=== PATIENT | female | born 1940 | race Hispanic/Latino ===

== ENCOUNTER 2019-11-06 12:00 | Emergency (ER) | payer OTHER ==
--- OUTSIDE RECORDS SUMMARY | 2019-11-06 12:02 | XMS REPORT ---
:1940 Author Organization eClinicalWorks Care Team Providers Name Role Phone Alvarado, Na Provider Role Unavailable Allergies, Adverse Reactions, Alerts Substance Reaction Event Type tramadol Info Not Available Drug Allergy penicillin Info Not Available Drug Allergy Problems Problem Type Condition Code Onset Dates Condition Status Problem Anemia in chronic illness D63.8 Active Problem Cataract H26.9 Active Problem DJD (degenerative joint disease) M19.90 Active Problem Muscle strain of upper back S29.012A Active Problem GERD without esophagitis K21.9 Active Problem Varicose veins of bilateral lower I83.813 Active extremities with pain Problem Rheumatoid arthritis M06.9 Active Problem Screening for osteoporosis Z13.820 Active Problem Osteoarthritis, multiple sites M15.9 Active Problem Degeneration, intervertebral disc, M51.37 Active lumbosacral Assessment Needs flu shot Z23 Active Assessment Varicose veins of bilateral lower I83.813 Active extremities with pain Assessment Anemia in chronic illness D63.8 Active Assessment Rheumatoid arthritis M06.9 Active Assessment Osteoarthritis, multiple sites M15.9 Active Assessment DJD (degenerative joint disease) M19.90 Active Problem Allergic rhinitis, seasonal J30.2 Active Medications Medication Code Code Instructions Start End Status Dosage System Date Date Omeprazole [facility] 70701318949 20 MG Orally Active 1 capsule Once a day Caltrate 600+D [facility] 80355002443 600-800 MG-UNIT Active 1 tablet Orally Once a with a day meal PredniSONE ND 16907856339 20 MG Active TAKE ONE TABLET BY MOUTH ONCE DAILY Methotrexate [facility] 74468083862 2.5 MG Orally Active 6 tabs Sodium once a week Nasacort Allergy [facility] 71756085439 55 MCG/ACT Active 1 puff in 24HR Nasally Once a each day nostril Refresh Dry Eye ND 0 Active not Therapy defined Celebrex [facility] 83563828788 200 MG Orally Active 1 capsule Once a day with food Ferrous Sulfate ND 23821687801 325 (65 Fe) MG Active 1 tablet Orally Once a day Tizanidine HCl ND 12686548701 2 MG Orally at January Active 1 capsule bedtime 2018 as needed Folic Acid [facility] 33622452688 1 MG Orally Active 1 tablet Once a day Results No Known Results Immunizations Vaccine Administration Date FluAD Jul 25, 2019 Summary Purpose eClinicalWorks Submission
--- OUTSIDE RECORDS SUMMARY | 2019-11-06 12:02 | XMS REPORT ---
:1940 Author Organization eClinicalWorks Care Team Providers Name Role Phone Alvarado, Na Provider Role Unavailable Allergies, Adverse Reactions, Alerts Substance Reaction Event Type tramadol Info Not Available Drug Allergy penicillin Info Not Available Drug Allergy Problems Problem Type Condition Code Onset Dates Condition Status Problem DJD (degenerative joint disease) M19.90 Active Problem Screening for osteoporosis Z13.820 Active Problem Cataract H26.9 Active Problem Varicose veins of bilateral lower I83.813 Active extremities with pain Problem Muscle strain of upper back S29.012A Active Problem Vitamin D deficiency E55.9 Active Problem Osteoarthritis, multiple sites M15.9 Active Problem Degeneration, intervertebral disc, M51.37 Active lumbosacral Problem Rheumatoid arthritis M06.9 Active Problem GERD without esophagitis K21.9 Active Assessment Exposure to the flu Z20.828 Active Assessment Viral upper respiratory illness J06.9 Active Assessment Flu-like symptoms R68.89 Active Problem Allergic rhinitis, seasonal J30.2 Active Assessment Fever, unspecified fever cause R50.9 Active Problem Anemia in chronic illness D63.8 Active Medications Medication Code Code Instructions Start End Status Dosage System Date Date Tamiflu [facility] 32520262862 75 MG Orally Active 1 capsule Twice a day Caltrate 600+D [facility] 79252728950 600-800 MG-UNIT Active 1 tablet Orally Once a with a day meal PredniSONE ND 36409663825 20 MG Active TAKE ONE TABLET BY MOUTH ONCE DAILY Tizanidine HCl ND 29132846454 2 MG Orally at January Active 1 capsule bedtime 2018 as needed Ferrous Sulfate ND 95608221004 325 (65 Fe) MG Active 1 tablet Orally Once a day Methotrexate [facility] 26539508382 2.5 MG Orally Active 6 tabs Sodium once a week Nasacort Allergy [facility] 48445565295 55 MCG/ACT Active 1 puff in 24HR Nasally Once a each day nostril Omeprazole ND 65323113927 20 MG Orally Active 1 capsule Once a day Refresh Dry Eye NDC 0 Active not Therapy defined Folic Acid [facility] 26682665416 1 MG Orally Active 1 tablet Once a day Celebrex [facility] 06017893445 200 MG Orally Active 1 capsule Once a day with food Results Name Result Date Reference Range Unit Abnormality Flag FLU TEST A/B ----A neg [id number] ----B neg [id number] Summary Purpose eClinicalWorks Submission
--- OUTSIDE RECORDS SUMMARY | 2019-11-06 12:02 | XMS REPORT ---
:1940 Author Organization eClinicalWorks Care Team Providers Name Role Phone Alvarado, Na Provider Role Unavailable Allergies No Known Allergies Problems Problem Type Condition Code Onset Dates [...] Degeneration, intervertebral disc, M51.37 Active lumbosacral Assessment Rheumatoid arthritis M06.9 Active Assessment Osteoarthritis, multiple sites M15.9 Active Assessment Anemia in chronic illness D63.8 Active Problem Allergic rhinitis, seasonal J30.2 Active Medications No Known Medications Results No Known Results Summary Purpose eClinicalEvodental Submission
[2019-11-06] MEDS ORDERED: FENTANYL CITR 100 MCG/2 ML ONE (13:41)
--- NOTE | 2019-11-06 14:07 | RAD REPORT ---
EXAM DESCRIPTION: CT - Thorax Wo Con - 11/06/2019 1:52 pm CLINICAL HISTORY: Chest pain status fall COMPARISON: 2011 TECHNIQUE: Computed axial tomography of the chest was obtained. Contrast was not requested. All CT scans are performed using dose optimization technique as appropriate and may include automated exposure control or mA/KV adjustment according to patient size. FINDINGS: The evaluation of mediastinum, dean and vessels is limited secondary to lack of IV contras t administration. A mediastinal hematoma is not seen. A pulmonary contusion is not noted A pleural effusion is not present. A pericardial effusion is not seen IMPRESSION: No acute traumatic injury involving the chest seen
--- NOTE | 2019-11-06 14:47 | RAD REPORT ---
EXAM DESCRIPTION: RAD -Hand Left 3 View - 11/06/2019 2:01 pm CLINICAL HISTORY: Left hand pain status post injury FINDINGS: No acute fracture or dislocation is seen. Subluxations involve several proximal phalanges. Bones are osteoporotic. Flexion deformity involves t he fourth PIP joint. Narrowing involves the carpal joints. These findings likely related to rheumatoid arthritis
--- NOTE | 2019-11-06 14:48 | ER ---
Nurse's Notes [facility] Name: Maya Burrell Age: 79 yrs Sex: Female : 1940 Arrival Date: 11/06/2019 Time: 12:03 Bed 23 Private MD: Taisha Alvarado Diagnosis: Contusion of left hand;Contusion of right lower leg;Other chest pain Presentation: 11/06 12:36 Presenting complaint: Patient states: fell on Monday, pain to left hand, right knee, iw and chest, fell forward onto ground, ia having a hard time breathing. Care prior to arrival: None. 12:36 Acuity: JERRY 3 iw 12:36 Method Of Arrival: Ambulatory iw 12:38 Transition of care: patient was not received from another setting of care. Onset of iw symptoms was November 03, 2019. Risk Assessment: Do you want to hurt yourself or someone else? Patient reports no desire to harm self or others. Initial Sepsis Screen: Does the patient meet any 2 criteria? No. Patient's initial sepsis screen is negative. Does the patient have a suspected source of infection? No. Patient's initial sepsis screen is negative. 13:20 Mechanism of Injury: Fall from standing position. Trauma event details: Injury occurred ca1 in the [facility], Injury occurred: at home. Injury occurred: November 03, 2019. Trauma Activation: Not Applicable Physician: ED Physician; Name: ; Notified At: ; Arrived At: Physician: General Surgeon; Name: ; Notified At: ; Arrived At: Physician: Radiology; Name: ; Notified At: ; Arrived At: Physician: Respiratory; Name: ; Notified At: ; Arrived At: Physician: Lab; Name: ; Notified At: ; Arrived At: Historical: - Allergies: 12:38 PENICILLINS; iw - PMHx: 12:38 Arthritis; iw - PSHx: 12:38 Eye surgery; iw - Immunization history: Last tetanus immunization:. - Social history:: Smoking status: Patient denies any tobacco usage or history of. - Ebola Screening: : Patient negative for fever greater than or equal to 101.5 degrees Fahrenheit, and additional compatible Ebola Virus Disease symptoms Patient denies exposure to infectious person Patient denies travel to an Ebola-affected area in the 21 days before illness onset No symptoms or risks identified at this time. Screenin:15 Abuse screen: Denies threats or abuse. Denies injuries from another. Nutritional ca1 screening: No deficits noted. Tuberculosis screening: No symptoms or risk factors identified. Fall Risk Fall in past 12 months (25 points). Primary Survey: 13:18 NO uncontrolled hemorrhage observed. A: A: The patient is alert. Breathing/Chest: ca1 Respiratory pattern: regular, Respiratory effort: spontaneous, unlabored, Breath sounds: clear, Chest inspection: symmetrical rise and fall of the chest. Circulation: Skin color: pink, Skin temperature: warm, dry. Disability Alert. Exposure/Environment: All clothing and personal items were removed. Forensic evidence collection is not deemed to be indicated at this time. Items placed in patient belonging bag. There is no evidence of uncontrolled external bleeding. No obvious injuries are noted at this time. A warming method has been applied: A warm blanket has been provided to the patient. 14:27 Reassessment Airway Airway Patent Breathing/Chest Respiratory pattern Regular ca1 Respiratory effort Spontaneous Unlabored Breath sounds Clear Chest inspection Symmetrical Circulation Heart rhythm Sinus salomón Heart tones Present Pulses Palpable Color Bel[place] Temperature Warm Dry Disability Alert. Assessment: 13:15 General: Appears in no apparent distress. uncomfortable, Behavior is calm, cooperative, ca1 appropriate for age. Pain: Complains of pain in L wrist, R knee, R chest Pain currently is 8 out of 10 on a pain scale. Pain began 2-3 days ago. Aggravated by repositioning. Neuro: Level of Consciousness is awake, alert, obeys commands, Oriented to person, place, time, situation, Appropriate for age. Cardiovascular: Heart tones S1 S2 present Capillary refill < 3 seconds Patient's skin is warm and dry. Rhythm is. Respiratory: Reports shortness of breath on exertion Airway is patent Respiratory effort is even, unlabored, Respiratory pattern is regular, symmetrical, Breath sounds are clear bilaterally. GI: Abdomen is round non-distended, Bowel sounds present X 4 quads. Abd is soft and non tender X 4 quads. : No deficits noted. No signs and/or symptoms were reported regarding the genitourinary system. EENT: No signs and/or symptoms were reported regarding the EENT system. Derm: Skin is intact, is healthy with good turgor, Skin is pink, warm \T\ dry. Musculoskeletal: Circulation, motion, and sensation intact. Capillary refill < 3 seconds. 13:42 Reassessment: Pt to CT. ca1 14:26 Reassessment: Patient appears in no apparent distress at this time. Patient and/or ca1 family updated on plan of care and expected duration. Pain level reassessed. Patient is alert, oriented x 3, equal unlabored respirations, skin warm/dry/pink. 15:02 Reassessment: Patient appears in no apparent distress at this time. Patient is alert, ca1 oriented x 3, equal unlabored respirations, skin warm/dry/pink. Vital Signs: 12:38 BP 138 / 83; Pulse 62; Resp 16; Temp 97.5; Pulse Ox 100% on R/A; Weight 56.7 kg; iw 14:26 BP 141 / 53; Pulse 59; Resp 17 S; Pulse Ox 100% on R/A; ca1 Krys Coma Score: 13:18 Eye Response: spontaneous(4). Verbal Response: oriented(5). Motor Response: obeys ca1 commands(6). Total: 15. Trauma Score (Adult): 13:18 Eye Response: spontaneous(1); Verbal Response: oriented(1); Motor Response: obeys ca1 commands(2); Systolic BP: > 89 mm Hg(4); Respiratory Rate: 10 to 29 per min(4); Krys Score: 15; Trauma Score: 12 ED Course: 12:03 Patient arrived in ED. mr 12:04 Taisha Alvarado MD is Private Physician. mr 12:37 Triage completed. iw 13:07 Maya Solis, RN is Primary Nurse. ca1 13:08 [facility] Bass [facility]. jr8 13:08 West Child MD is Attending Physician. jr8 13:15 Patient has correct armband on for positive identification. Placed in gown. Bed in low ca1 position. Call light in reach. Side rails up X 1. school bus monitor on. Pulse ox on. NIBP on. Warm blanket given. 13:15 No provider procedures requiring assistance completed. ca1 13:18 Patient maintains SpO2 saturation greater than 95% on room air. ca1 13:20 Thermoregulation: warm blanket given to patient. ca1 13:21 Arm band placed on. ca1 13:35 Inserted saline lock: 22 gauge in right antecubital area, using aseptic technique. ca1 13:52 CT Chest Wo Con In Process Unspecified. EDMS 14:04 XRAY Hand LEFT 3 View In Process Unspecified. EDMS 14:27 EKG done, by ED staff, reviewed by Davey CAVANAUGH. ca1 14:44 Taisha Alvarado MD is Referral Physician. jr8 15:02 IV discontinued, intact, bleeding controlled, No redness/swelling at site. Pressure ca1 dressing applied. Administered Medications: 13:40 Drug: fentaNYL (PF) 25 mcg {Note: RASS - 0.} Route: IVP; Site: right antecubital; ca1 Output: 15:02 Urine: 0ml; Total: 0ml. ca1 Outcome: 14:48 Discharge ordered by . jr8 15:02 Discharged to home ambulatory, with family. ca1 15:02 Condition: stable 15:02 Discharge instructions given to patient, Instructed on discharge instructions, follow up and referral plans. medication usage, Demonstrated understanding of instructions, follow-up care, medications, Prescriptions given X 1. 15:06 Patient's length of stay was not longer than 2 hours. ca1 15:06 Patient left the ED. ca1 Signatures: Dispatcher [employer] EDMD Gus Mago Mesha Washington, RN Davey Vázquez PA PA jr8 Maya Solis RN RN ca1
--- NOTE | 2019-11-06 14:49 | EDPHYS ---
Physician Documentation [facility] Name: Maya Burrell Age: 79 yrs Sex: Female : 1940 Arrival Date: 11/06/2019 Time: 12:03 Bed 23 Private MD: Taisha Alvarado ED Physician West Child HPI: 11/06 14:27 This 79 yrs old Female presents to ER via Ambulatory with complaints of Fall jr8 Injury, Breathing Difficulty. 14:27 Details of fall: The patient fell from an upright position, while standing. jr8 14:27 Onset: The symptoms/episode began/occurred acutely, 3 day(s) ago. Associated injuries: jr8 The patient sustained injury to the chest, left hand, right leg. Severity of symptoms: At their worst the symptoms were moderate, in the emergency department the symptoms are unchanged. The patient has not experienced similar symptoms in the past. The patient has not recently seen a physician. Accidental fall on Monday causing her to injure left hand, right leg, and chest. Denies hitting head or neck. No LOC at that time. Stated that the pain is persistent and not going away. Causing her to be short of breath . Historical: - Allergies: 12:38 PENICILLINS; iw - PMHx: 12:38 Arthritis; iw - PSHx: 12:38 Eye surgery; iw - Immunization history: Last tetanus immunization:. - Social history:: Smoking status: Patient denies any tobacco usage or history of. - Ebola Screening: : Patient negative for fever greater than or equal to 101.5 degrees Fahrenheit, and additional compatible Ebola Virus Disease symptoms Patient denies exposure to infectious person Patient denies travel to an Ebola-affected area in the 21 days before illness onset No symptoms or risks identified at this time. ROS: 14:27 Eyes: Negative for injury, pain, redness, and discharge, ENT: Negative for injury, jr8 pain, and discharge, Neck: Negative for injury, pain, and swelling, Abdomen/GI: Negative for abdominal pain, nausea, vomiting, diarrhea, and constipation, Back: Negative for injury and pain, Skin: Negative for injury, rash, and discoloration, Neuro: Negative for headache, weakness, numbness, tingling, and seizure. 14:27 Cardiovascular: Positive for chest pain, Negative for orthopnea, palpitations, paroxysmal nocturnal dyspnea. 14:27 Respiratory: Positive for shortness of breath. 14:27 MS/extremity: Positive for ecchymosis, pain, of the left hand and right leg. Exam: 14:42 Head/Face: Normocephalic, atraumatic. Eyes: Pupils equal round and reactive to light, jr8 extra-ocular motions intact. Lids and lashes normal. Conjunctiva and sclera are non-icteric and not injected. Cornea within normal limits. Periorbital areas with no swelling, redness, or edema. ENT: Nares patent. No nasal discharge, no septal abnormalities noted. Tympanic membranes are normal and external auditory canals are clear. Oropharynx with no redness, swelling, or masses, exudates, or evidence of obstruction, uvula midline. Mucous membranes moist. Neck: Trachea midline, no thyromegaly or masses palpated, and no cervical lymphadenopathy. Supple, full range of motion without nuchal rigidity, or vertebral point tenderness. No Meningismus. Cardiovascular: Regular rate and rhythm with a normal S1 and S2. No gallops, murmurs, or rubs. Normal PMI, no JVD. No pulse deficits. Respiratory: Lungs have equal breath sounds bilaterally, clear to auscultation and percussion. No rales, rhonchi or wheezes noted. No increased work of breathing, no retractions or nasal flaring. Abdomen/GI: Soft, non-tender, with normal bowel sounds. No distension or tympany. No guarding or rebound. No evidence of tenderness throughout. Back: No spinal tenderness. No costovertebral tenderness. Full range of motion. Skin: Warm, dry with normal turgor. Normal color with no rashes, no lesions, and no evidence of cellulitis. Neuro: Awake and alert, GCS 15, oriented to person, place, time, and situation. Cranial nerves II-XII grossly intact. Motor strength 5/5 in all extremities. Sensory grossly intact. Cerebellar exam normal. Normal gait. 14:42 Chest/axilla: Inspection: normal, Palpation: tenderness, that is moderate, of the anterior aspect of left upper chest, that totally reproduces the patient's complaints. 14:42 Musculoskeletal/extremity: Extremities: grossly normal except: noted in the left hand: ecchymosis, pain, swelling, tenderness, dorsum of hand, noted in the right leg: abrasion, ecchymosis, right knee and proximal anterior tibia, ROM: intact in all extremities, full active range of motion, full passive range of motion, Circulation is intact in all extremities. Sensation intact. Weight bearing: able to fully bear weight, without difficulty. Vital Signs: 12:38 BP 138 / 83; Pulse 62; Resp 16; Temp 97.5; Pulse Ox 100% on R/A; Weight 56.7 kg; iw 14:26 BP 141 / 53; Pulse 59; Resp 17 S; Pulse Ox 100% on R/A; ca1 Krys Coma Score: 13:18 Eye Response: spontaneous(4). Verbal Response: oriented(5). Motor Response: obeys ca1 commands(6). Total: 15. Trauma Score (Adult): 13:18 Eye Response: spontaneous(1); Verbal Response: oriented(1); Motor Response: obeys ca1 commands(2); Systolic BP: > 89 mm Hg(4); Respiratory Rate: 10 to 29 per min(4); Enfield Score: 15; Trauma Score: 12 MDM: 13:19 Patient medically screened. jr8 14:42 Data reviewed: vital signs, nurses notes, radiologic studies, plain films. Data jr8 interpreted: Pulse oximetry: on room air is 100 %. Interpretation: normal. Counseling: I had a detailed discussion with the patient and/or guardian regarding: the historical points, exam findings, and any diagnostic results supporting the discharge/admit diagnosis, radiology results, the need for outpatient follow up, a family practitioner, to return to the emergency department if symptoms worsen or persist or if there are any questions or concerns that arise at home. ED course: No acute osseous findings on imaging. Will have patient follow up with PCP . 11/06 13:24 Order name: CT Chest Wo Con; Complete Time: 14:14 8 11/06 13:25 Order name: XRAY Hand LEFT 3 View; Complete Time: 14:52 8 11/06 13:24 Order name: IV; Complete Time: 13:40 jr8 11/06 14:15 Order name: EKG - Nurse/Tech; Complete Time: 14:28 8 11/06 14:15 Order name: EKG; Complete Time: 14:16 jr8 Administered Medications: 13:40 Drug: fentaNYL (PF) 25 mcg {Note: RASS - 0.} Route: IVP; Site: right antecubital; ca1 Disposition: 16:48 Co-signature as Attending Physician, West Child MD. rn Disposition: 11/06/19 14:48 Discharged to Home. Impression: Contusion of left hand, Contusion of right lower leg, Other chest pain. - Condition is Stable. - Discharge Instructions: Contusion, Chest Wall Pain, Hand Contusion. - Prescriptions for Tylenol- Codeine #3 300-30 mg Oral Tablet - take 2 tablets by ORAL route every 6 hours As needed; 12 tablet. - Medication Reconciliation Form, Thank You Letter, Antibiotic Education, Prescription Opioid Use form. - Follow up: Taisha Alvarado MD; When: 5 - 6 days; Reason: Recheck today's complaints, Continuance of care, Re-evaluation by your physician. - Problem is new. - Symptoms have improved. Signatures: Dispatcher [employer] EDMesha Servin RN RN iw Nieto, Roman, MD MD rn Roszak, Josh, PA PA jr8 Maya Solis RN RN ca1 Corrections: (The following items were deleted from the chart) 14:28 14:27 Details of fall: The patient fell from an upright position, while standing, jr8 jr8 15:06 14:48 11/06/2019 14:48 Discharged to Home. Impression: Contusion of left hand; ca1 Contusion of right lower leg; Other chest pain. Condition is Stable. Forms are Medication Reconciliation Form, Thank You Letter, Antibiotic Education, Prescription Opioid Use. Follow up: Taisha Alvarado; When: 5 - 6 days; Reason: Recheck today's complaints, Continuance of care, Re-evaluation by your physician. Problem is new. Symptoms have improved. jr8
[2019-11-06 21:20] VITALS: TEMP 97.5; O2SAT 100
[2019-11-06 21:21] VITALS: BP 141/53
--- NOTE | 2019-11-07 13:42 | EKG ---
Test Date: 2019-11-06 Test Time: 14:23:36 [employer] Professor: YANI MEASUREMENT RESULTS: Intervals: Rate: 55 VT: 136 QRSD: 78 QT: 396 QTc: 378 [place]olla: P: 40 VT: 136 QRS: 20 T: 38 INTERPRETIVE STATEMENTS: Sinus bradycardia Otherwise normal ECG Compared to ECG 04/27/2016 08:39:54 Sinus rhythm no longer present Electronically Signed On 11-07-19 13:38:18 [employer] by Jon Mercer
== END 2019-11-06 15:06 | disposition home or self-care (01) ==
LOC: ER 12:00
DX: S60.222A Contusion of left hand, initial encounter (principal); S80.11XA Contusion of right lower leg, initial encounter; W18.30XA Fall on same level, unspecified, initial encounter; Y93.9 Activity, unspecified; Y92.9 Unspecified place or not applicable; Z88.0 Allergy status to penicillin
CPT/HCPCS: 93005; 71250; 73130; 96374; 99285; J3010

== ENCOUNTER 2021-01-03 12:30 | Emergency (ER) | payer OTHER ==
--- OUTSIDE RECORDS SUMMARY | 2021-01-03 12:32 | XMS REPORT | Continuity of Care Document ---
:1940 Author Organization [facility] t Address [address] [place] [address] [address] [place] [address] Care Team Providers Name Role Phone Unavailable Unavailable Unavailable Problems This patient has no known problems. Allergies, Adverse Reactions, Alerts Allergy Allergy Status Severity Reaction(s) Onset Inactive Treating Comm ents Source Name Type Date Date Clinician tramadol Adverse Active Info Not [facility] penicill Adverse Active Info Not [facility] in Reaction Available [facility] Medications Ordered Filled Start Stop Current Ordering Indication Dosage Frequency Signature Comments Components Source Medication Medication Date Date Medication? Clinician (SIG) Name Name Methotrexat Methotrexat Yes Na Alvarado [address] [facility] Sodium e Sodium [facility] PredniSONE PredniSONE Yes Na Alvarado TAKE ONE [facility] TABLET BY [facility] MOUTH ONCE [facility] DAILY [facility] ent [facility] Nasacort Nasacort Yes Na Alvarado [address] [facility] Allergy Allergy each [facility] - 24HR 24HR nostril [facility] Omeprazole Omeprazole Yes Na Alvarado [address] [facility] Folic Acid Folic Acid Yes Na Alvarado [address] [facility] Tizanidine Tizanidine Yes Na Alvarado [address] [facility] HCl HCl as needed [facility] at bedtime [facility] Celebrex Celebrex Yes Na Alvarado [address] [facility] with food [facility] Ferrous Ferrous Yes Na Alvarado [address] Sulfate Sulfate [facility] Caltrate Caltrate Yes Na Alvarado [address] [facility] 600+D 600+D with a [facility] ent Clinics Refresh Dry Refresh Dry Yes Na Alvarado not [facility] defined [facility] ent Clinics Tamiflu Tamiflu Yes Na Alvarado [address] [facility] ent Clinics Immunizations Ordered Filled Immunization Date Status Comments Sourc e Immunization Name Name Warren Kelley 2019-07-[address] [facility] Procedures This patient has no known procedures. Encounters Start End Encounter Admission Attending Care Care Encounter Source Date/Time Date/Time Type Type Clinicians Facility Department ID 2020-12-08 2020-12-08 [facility] [id number] [facility] 2020-11-03 2020-11-03 [facility] [id number] [facility] 2020-11-03 2020-11-03 [facility] [id number] [facility] 2020-07-31 2020-07-31 [facility] [id number] [facility] 2020-04-29 2020-04-29 [facility] [id number] [facility] 10:00:00 10:00:00 t B-152 [facility] Clin[facility] 2020-02-25 2020-02-25 [facility] [id number] [facility] 13:13:00 13:13:00 [facility] Out[facility] Clinics 2020-02-07 2020-02-07 [facility] [id number] [facility] 14:40:00 14:40:00 [facility] Out[facility] Clinics 2020-01-28 2020-01-28 [facility] [id number] [facility] 08:20:00 08:20:00 [place] [employer] [facility] Medicine l Medicine Outpati ent Clinics 2019-11-25 2019-11-25 [facility] [id number] [address] 08:00:00 08:00:00 [place] [employer] [facility] Medicine l Medicine Outpati ent Clinics 2019-11-15 2019-11-15 [facility] [id number] 16:00:00 16:00:00 [place] [employer] [facility] l Medicine Outpati ent Clinics 2019-10-29 2019-10-29 [facility] [id number] 08:20:00 08:20:00 [place] [employer] [facility] Medicine l Medicine Outpati ent Clinics 2019-10-22 2019-10-22 [facility] [id number] 08:20:00 08:20:00 [place] [employer] [facility] Medicine l Medicine Outpati ent Clinics 2019-10-21 2019-10-21 [facility] [id number] [address] 16:37:00 16:37:00 [place] [employer] [facility] Medicine l Medicine Outpati ent Clinics 2019-07-25 2019-07-25 [facility] [id number] [address] 15:40:00 15:40:00 [place] [employer] [facility] Medicine l Medicine Outpati ent Clinics 2019-05-03 2019-05-03 [facility] [id number] [facility] 13:00:00 13:00:00 [place] [employer] [facility] Medicine l Medicine Outpati ent Clinics 2019-02-08 2019-02-08 [facility] [id number] 10:13:00 10:13:00 [place] [employer] [facility] Medicine l Medicine Outpati ent Clinics 2019-01-28 2019-01-28 [facility] [id number] [address] 15:20:00 15:20:00 t [place] [employer] [facility] Medicine l Medicine Outpati ent Clinics 2018-10-30 2018-10-30 Outpatient [facility] [id number] 08:45:00 08:45:00 t [place] [employer] [facility] Medicine Outpat[facility] ent Clinics Results This patient has no known results.
[2021-01-03] MEDS ORDERED: FENTANYL CITR 100 MCG/2 ML ONE (13:00)
[2021-01-03] MEDS ORDERED: KETAMINE HCL 500 MG/5 ML VIAL ONE (13:40)
[2021-01-03] MEDS ORDERED: NA CHLORIDE 0.9% 0 ML ONE (13:42)
--- NOTE | 2021-01-03 13:44 | RAD REPORT ---
EXAM DESCRIPTION: RAD - Shoulder Left 2 View - 01/03/2021 1:26 pm CLINICAL HISTORY: DEFORMITY, fall with left shoulder pain COMPARISON: No comparisons TECHNIQUE: Internal and external rotation views of the left shoulder were obtained. FINDINGS: Left humeral head is dislocated medial and inferior to the glenoid. This is a classic loca tion for anterior dislocation. No fracture is seen. AC joint degenerative changes are mild. IMPRESSION: Anterior dislocation of the left humeral head.
[2021-01-03] MEDS ORDERED: MORPHINE 4 MG/ML SYR ONE (13:45)
[2021-01-03] MEDS ORDERED: ONDANSETRON 4 MG/2 ML VIAL ONE (13:45)
--- NOTE | 2021-01-03 13:45 | RAD REPORT ---
EXAM DESCRIPTION: RAD - Knee Left 3 View - 01/03/2021 1:26 pm CLINICAL HISTORY: PAIN, fall with knee pain COMPARISON: No comparisons FINDINGS: No fracture, dislocation or periosteal reaction.No joint effusion seen. No joint space swathi rowing. No soft tissue abnormality. Bones are osteopenic. IMPRESSION: Negative left knee. Clinical concerns for internal derangement or occult bony injury could be further assessed with MR im aging.
--- NOTE | 2021-01-03 15:02 | RAD REPORT ---
EXAM DESCRIPTION: RAD - Shoulder Left 1 View - 01/03/2021 2:16 pm CLINICAL HISTORY: DEFORMITY, anterior dislocation COMPARISON: Shoulder Left 2 View dated 01/03/2021 TECHNIQUE: Single internal rotation projection obtained labeled post reduction. FINDINGS: Anterior dislocation has been reduced back anatomic position. No fracture changes seen. No AC joint separation.
--- NOTE | 2021-01-03 15:09 | ER ---
Nurse's Notes [facility] Name: Maya Burrell Age: 80 yrs Sex: Female : 1940 Arrival Date: 01/03/2021 Time: 12:37 Bed 14 Private MD: Diagnosis: Anterior dislocation of left humerus Presentation: 01/03 12:40 Chief complaint: EMS states: pt fell onto right side while walking into [place], obvious iw deformity to left shoulder , pt denies hitting head, also has pain to left knee. Coronavirus screen: At this time, the client does not indicate any symptoms associated with coronavirus-19. Ebola Screen: Patient negative for fever greater than or equal to 101.5 degrees Fahrenheit, and additional compatible Ebola Virus Disease symptoms Patient denies exposure to infectious person. Patient denies travel to an Ebola-affected area in the 21 days before illness onset. No symptoms or risks identified at this time. Initial Sepsis Screen: Does the patient meet any 2 criteria? No. Patient's initial sepsis screen is negative. Does the patient have a suspected source of infection? No. Patient's initial sepsis screen is negative. Risk Assessment: Do you want to hurt yourself or someone else? Patient reports no desire to harm self or others. Onset of symptoms was January 03, 2021. 12:40 Method Of Arrival: EMS: [facility] iw 12:40 Acuity: JERRY 3 iw Triage Assessment: 12:45 General: Appears uncomfortable, Behavior is crying. Injury Description: dislocation of iw left shoulder. Historical: - Allergies: 12:58 PENICILLINS; iw - Home Meds: 12:58 Methotrexate Sodium Oral [Active]; Celebrex Oral [Active]; iw - PMHx: 12:58 Arthritis; iw - PSHx: 12:58 Eye surgery; iw - Immunization history:: Adult Immunizations unknown. - Social history:: Patient/guardian denies using alcohol, street drugs, The patient lives with family, Smoking status: Patient denies any tobacco usage or history of. - Family history:: not pertinent. Screenin:45 Abuse screen: Denies threats or abuse. Denies injuries from another. Nutritional iw screening: No deficits noted. Tuberculosis screening: No symptoms or risk factors identified. Fall Risk Fall in past 12 months (25 points). Assessment: 12:45 General: Appears distressed, uncomfortable, Behavior is anxious, crying. Pain: iw Complains of pain in left shoulder. Neuro: Level of Consciousness is awake, alert, obeys commands, Oriented to person, place, time, situation, Full function. Cardiovascular: Patient's skin is warm and dry. Respiratory: Respiratory effort is even, unlabored, Respiratory pattern is regular, symmetrical. Derm: Skin is intact. Musculoskeletal: Range of motion: limited in left shoulder. 13:20 Reassessment: pt has been consented for moderate sedation and reduction of left iw shoulder. 13:47 Reassessment: reduction complete, pt tolerated procedure well, repeat xray ordered. iw 14:44 Reassessment: pt awakens easily to verbal stimuli, VSS, repeat xray done, awaiting iw dispo. Vital Signs: 12:40 BP 161 / 59; Pulse 65; Resp 16; Temp 97.9; Pulse Ox 97% on R/A; Weight 58.97 kg; iw 13:47 BP 195 / 70; Pulse 102; Resp 20 S; Pulse Ox 99% on 2 lpm NC; iw 14:02 BP 188 / 92; Pulse 87; Resp 16; Pulse Ox 99% on 2 lpm NC; iw 14:44 BP 148 / 74; Pulse 88; Resp 16; Pulse Ox 100% on 2 lpm NC; iw ED Course: 12:37 Patient arrived in ED. aa5 12:40 Inserted saline lock: 20 gauge in right antecubital area, using aseptic technique. iw 12:41 Chris Gonzalez MD is Attending Physician. ma2 12:45 Arm band placed on. iw 12:45 Patient has correct armband on for positive identification. iw 12:54 Mesha Gallegos, RN is Primary Nurse. iw 12:58 Triage completed. iw 13:25 Shoulder Left (2 View) XRAY In Process Unspecified. EDMS 13:25 Knee Left 3 View XRAY In Process Unspecified. EDMS 13:50 Assist provider with reduction of left shoulder using manipulation, Set up for iw procedure. Performed by Chris Gonzalez MD Immobilized with shoulder immobilizer Patient tolerated well. 14:16 Shoulder Left (2 View) XRAY In Process Unspecified. EDMS 15:50 IV discontinued, intact, bleeding controlled, No redness/swelling at site. Pressure iw dressing applied. Administered Medications: 12:45 Drug: fentaNYL (PF) 50 mcg Route: IVP; Site: right antecubital; iw 13:00 Follow up: Response: No adverse reaction iw 13:33 Drug: morphine 4 mg Route: IVP; Site: right antecubital; iw 13:33 Drug: Zofran (Ondansetron) 4 mg Route: IVP; Site: right antecubital; iw 13:38 Drug: Ketamine 1 mg/kg Route: IVP; Site: right antecubital; iw Outcome: 15:09 Discharge ordered by MD. perez 15:51 Discharged to home via wheelchair, with family. iw 15:51 Condition: good 15:51 Discharge instructions given to patient, family, Instructed on discharge instructions, follow up and referral plans. medication usage, Demonstrated understanding of instructions, follow-up care, medications, Prescriptions given X 1. 15:52 Patient left the ED. iw Signatures: Dispatcher [employer] EDMesha Servin RN RN iw Calderon, Audri, RN RN aa5 Chris oGnzalez MD MD ma2 Corrections: (The following items were deleted from the chart) 13:18 12:40 BP 161 / 59; Pulse 65bpm; Resp 16bpm; Pulse Ox 97% RA; Temp 97.9F; iw iw 13:21 12:30 Inserted saline lock: 20 gauge in right antecubital area, using aseptic iw technique. iw
--- NOTE | 2021-01-03 15:10 | EDPHYS ---
Physician Documentation [facility] Name: Maya Burrell Age: 80 yrs Sex: Female : 1940 Arrival Date: 01/03/2021 Time: 12:37 Bed 14 Private MD: ED Physician Chris Gonzalez HPI: 01/03 13:52 This 80 yrs old Female presents to ER via EMS with complaints of Shoulder ma2 Injury. 13:52 The patient or guardian complains of decreased range of motion, an injury. Onset: The ma2 symptoms/episode began/occurred suddenly, 1 hour(s) ago. Severity of symptoms: At their worst the symptoms were moderate, in the emergency department the symptoms are unchanged. The patient has not experienced similar symptoms in the past. tripped and fell on left shoulderhas left shoulder pain and dislocation and left knee pain . Historical: - Allergies: 12:58 PENICILLINS; iw - Home Meds: 12:58 Methotrexate Sodium Oral [Active]; Celebrex Oral [Active]; iw - PMHx: 12:58 Arthritis; iw - PSHx: 12:58 Eye surgery; iw - Immunization history:: Adult Immunizations unknown. - Social history:: Patient/guardian denies using alcohol, street drugs, The patient lives with family, Smoking status: Patient denies any tobacco usage or history of. - Family history:: not pertinent. ROS: 13:52 Constitutional: Negative for fever, chills, and weight loss. ma2 13:52 All other systems are negative. Exam: 13:52 Constitutional: This is a well developed, well nourished patient who is awake, alert, ma2 and in no acute distress. Chest/axilla: Normal chest wall appearance and motion. Nontender with no deformity. No lesions are appreciated. Cardiovascular: Regular rate and rhythm with a normal S1 and S2. No gallops, murmurs, or rubs. Normal PMI, no JVD. No pulse deficits. Respiratory: Lungs have equal breath sounds bilaterally, clear to auscultation and percussion. No rales, rhonchi or wheezes noted. No increased work of breathing, no retractions or nasal flaring. Abdomen/GI: Soft, non-tender, with normal bowel sounds. No distension or tympany. No guarding or rebound. No evidence of tenderness throughout. Back: No spinal tenderness. No costovertebral tenderness. Full range of motion. MS/ Extremity: left shoulde rdeformity, neurvascular intact, pulses palpable and sensation adn hand movement intact, sensation normal over left detoid, othyerwise Pulses equal, no cyanosis. Neurovascular intact. Full, normal range of motion. Neuro: Awake and alert, GCS 15, oriented to person, place, time, and situation. Cranial nerves II-XII grossly intact. Motor strength 5/5 in all extremities. Sensory grossly intact. Cerebellar exam normal. Normal gait. Vital Signs: 12:40 BP 161 / 59; Pulse 65; Resp 16; Temp 97.9; Pulse Ox 97% on R/A; Weight 58.97 kg; iw 13:47 BP 195 / 70; Pulse 102; Resp 20 S; Pulse Ox 99% on 2 lpm NC; iw 14:02 BP 188 / 92; Pulse 87; Resp 16; Pulse Ox 99% on 2 lpm NC; iw 14:44 BP 148 / 74; Pulse 88; Resp 16; Pulse Ox 100% on 2 lpm NC; iw Procedures: 13:52 Reduction: of the left shoulder, using traction, manipulation, Immobilized with sling, ma2 Patient tolerated well. Post reduction film - reveals improved alignment. MDM: 12:41 Patient medically screened. ma2 13:52 Differential diagnosis: Anterior dislocation with fracture, Anterior dislocation ma2 without fracture, humeral head fracture, DJD, tendonitis. Data reviewed: vital signs, nurses notes. Counseling: I had a detailed discussion with the patient and/or guardian regarding: the historical points, exam findings, and any diagnostic results supporting the discharge/admit diagnosis, the presence of at least one elevated blood pressure reading (>120/80) during this emergency department visit. Counseling: I had a detailed discussion with the patient and/or guardian regarding: lab results, radiology results, the need for outpatient follow up. Response to treatment: the patient's symptoms have resolved after treatment. 01/03 12:42 Order name: Shoulder Left (2 View) XRAY; Complete Time: 13:51 ma2 01/03 12:45 Order name: Knee Left 3 View XRAY; Complete Time: 13:51 ma2 01/03 13:51 Order name: Shoulder Left (2 View) XRAY; Complete Time: 15:08 ma2 Administered Medications: 12:45 Drug: fentaNYL (PF) 50 mcg Route: IVP; Site: right antecubital; iw 13:00 Follow up: Response: No adverse reaction iw 13:33 Drug: morphine 4 mg Route: IVP; Site: right antecubital; iw 13:33 Drug: Zofran (Ondansetron) 4 mg Route: IVP; Site: right antecubital; iw 13:38 Drug: Ketamine 1 mg/kg Route: IVP; Site: right antecubital; iw Disposition: 01/03/21 15:09 Discharged to Home. Impression: Anterior dislocation of left humerus. - Condition is Stable. - Discharge Instructions: Shoulder Dislocation, [id number]. - Prescriptions for Diclofenac Sodium 75 mg Oral Tablet Sustained Release - take 1 tablet by ORAL route 2 times per day; 30 tablet. - Medication Reconciliation Form, Thank You Letter, Antibiotic Education, Prescription Opioid Use form. - Follow up: Private Physician; When: Tomorrow; Reason: Continuance of care. Signatures: Dispatcher [employer] Mesha Evans RN RN Chris Gonzalez MD MD ma2 Corrections: (The following items were deleted from the chart) 15:52 15:09 01/03/2021 15:09 Discharged to Home. Impression: Anterior dislocation of left iw humerus. Condition is Stable. Discharge Instructions: Shoulder Dislocation, [id number]. Prescriptions for Diclofenac Sodium 75 mg Oral Tablet Sustained Release - take 1 tablet by ORAL route 2 times per day; 30 tablet. and Forms are Medication Reconciliation Form, Thank You Letter, Antibiotic Education, Prescription Opioid Use. Follow up: Private Physician; When: Tomorrow; Reason: Continuance of care. ma2
[2021-01-03 15:56] VITALS: TEMP 97.9
[2021-01-03 16:01] VITALS: BP 148/74; O2SAT 100
== END 2021-01-03 15:52 | disposition home or self-care (01) ==
LOC: ER 12:30
PROC: 0RSKXZZ Reposition Left Shoulder Joint, External Approach (ICD-10-PCS; principal; 2021-01-03)
DX: S43.015A Anterior dislocation of left humerus, initial encounter (principal); W01.0XXA Fall on same level from slipping, tripping and stumbling without subsequent striking against object, initial encounter; Y93.01 Activity, walking, marching and hiking; Y92.9 Unspecified place or not applicable; Z88.0 Allergy status to penicillin
CPT/HCPCS: 73030 ×2; 73562; 96375; 96374; 99284; 23650; J3010; J2405; J7040

== ENCOUNTER 2021-04-19 10:27 | Emergency (ER) | payer OTHER ==
--- OUTSIDE RECORDS SUMMARY | 2021-04-19 11:43 | XMS REPORT | Continuity of Care Document ---
:1940 Author Organization [facility] t Address [facility] [address] [place] [address] Care Team Providers Name Role Phone Unavailable Unavailable Unavailable Problems This patient has no known problems. Allergies, Adverse Reactions, Alerts Allergy Allergy Status Severity Reaction(s) Onset Inactive Treating Comm ents Source Name Type Date Date Clinician tramadol Adverse Active Info Not [facility] penicill Adverse Active Info Not [facility] in Reaction Available [facility] Medications Ordered Filled Start Stop Current Ordering Indication Dosage Frequency Signature Comments Components Source Medication Medication Date Date Medication? Clinician (SIG) Name Name Methotrexat Methotrexat Yes Na Alvarado [address] [facility] Sodium e Sodium [facility] PredniSONE PredniSONE Yes Na Alvarado TAKE ONE [facility] TABLET BY [facility] MOUTH ONCE [facility] DAILY [facility] Nasacort Nasacort Yes Na Alvarado [address] [facility] Allergy Allergy each [facility] Om[facility]razole Omeprazole Yes Na Alvarado [address] [facility] Folic Acid Folic Acid Yes Na Alvarado [address] [facility] Tizanidine Tizanidine Yes Na Alvarado [address] [facility] HCl HCl as needed [facility] - at bedtime [facility] Celebrex Celebrex Yes Na Alvarado [address] [address] [facility] Ferrous Ferrous Yes Na Alvarado [address] [facility] Sulfate Sulfate [facility]pat[facility] Clinics Caltrate Caltrate Yes Na Alvarado [address] [facility] 600+D 600+D with a [facility] ent Clinics Refresh Dry Refresh Dry Yes Na Alvarado not [facility] Tamiflu Tamiflu Yes Na Alvarado [address] [facility] ent Clinics Immunizations Ordered Filled Immunization Date Status Comments Sour e Immunization Name Name Warren Kelley 2019-07-[address] [facility] Procedures This patient has no known procedures. Encounters Start End Encounter Admission Attending Care Care Encounter Source Date/Time Date/Time Type Type Clinicians Facility Department ID 2021 2021 [facility] [id number] 2021-01-07 2021-01-07 [facility] [id number] [facility] 2020-12-08 2020-12-08 [facility] [id number] [facility] 2020-11-03 2020-11-03 [facility] [id number] [facility] 2020-11-03 2020-11-03 [facility] [id number] [facility] 2020-07-31 2020-07-31 [facility] [id number] [facility] 2020-04-29 2020-04-29 [facility] [id number] [facility] 10:00:00 10:00:00 [employer] [facility] 2020-02-25 2020-02-25 [facility] [id number] [facility] 13:13:00 13:13:00 t [employer] [facility] Medicine Outpati ent Clinics 2020-02-07 2020-02-07 [facility] [id number] 14:40:00 14:40:00 t [employer] [facility] Medicine Outpat[facility] Clinics 2020-01-28 2020-01-28 [facility] [id number] [address] 08:20:00 08:20:00 t [employer] [facility] Medicine l Medicine Outpati ent Clinics 2019-11-25 2019-11-25 [facility] [id number] 08:00:00 08:00:[address] [employer] [facility] Medicine Outpati ent Clinics 2019-11-15 2019-11-15 [facility] [id number] [address] 16:00:00 16:00:00 t [employer] [facility] Medicine Outpati ent Clinics 2019-10-29 2019-10-29 [facility] [id number] [address] 08:20:00 08:20:00 t [employer] [facility] Medicine Outpati ent Clinics 2019-10-22 2019-10-22 [facility] [id number] [facility] 08:20:00 08:20:00 t [employer] [facility] Medicine Medicine Outpati ent Clinics 2019-10-21 2019-10-21 [facility] [id number] 16:37:00 16:37:00 t [employer] [facility] Medicine Medicine Outpati ent Clinics 2019-07-25 2019-07-25 [facility] [id number] [address] 15[facility]40:00 15:40:00 t [employer] [facility] Medicine Outpati ent Clinics 2019-05-03 2019-05-03 [facility] [id number] 13:00:00 13:00:00 t [employer] [facility] Medicine Outpat[facility] Clinics 2019-02-08 2019-02-08 [facility] [id number] 10:13:00 10:13:00 t [employer] [facility] 2019-01-28 2019-01-28 Outpatient Char [facility] [id number] [facility] 15:20:00 15:20:00 t [employer] [facility] 2018-10-30 2018-10-30 Outpatient Char [facility] [id number] 08:45:00 08:45:00 t [employer] [facility] ent Clinics Results This patient has no known results.
[2021-04-19] MEDS ORDERED: TRAMADOL HCL 50 MG TAB ONE (13:56)
--- NOTE | 2021-04-19 14:08 | RAD REPORT ---
EXAM DESCRIPTION: RAD - Hip Left 2 View - 04/19/2021 1:51 pm CLINICAL HISTORY: PAIN COMPARISON: Sacrum And Coccyx dated 04/19/2021 FINDINGS: [id number] left hip osteoarthritic changes are seen. Lucency is seen in the left pub ic symphysis, suspicious for fracture.
--- NOTE | 2021-04-19 14:10 | RAD REPORT ---
EXAM DESCRIPTION: RAD - Sacrum And Coccyx - 04/19/2021 1:51 pm CLINICAL HISTORY: LOWER BACK PAIN COMPARISON: Lumbar Spine 3 Views dated 01/29/2019; SPINE LUMBAR W OBLIQUE dated 04/29/2009; SPINE LUMB AR W OBLIQUE dated 08/26/2008 FINDINGS: The bones are diffusely demineralized. Sacrum appears intact with normal bilateral sacroil iac joints. Lucency is noted in the left pubic symphysis likely representing a mild fracture.
--- NOTE | 2021-04-19 15:30 | EDPHYS ---
Physician Documentation [facility] Name: Maya Burrell Age: 81 yrs Sex: Female : 1940 Arrival Date: 04/19/2021 Time: 10:29 Bed 23 Private MD: JULIANA Physician Mateo Villasenor HPI: 04/19 13:33 This 81 yrs old Female presents to ER via Wheelchair with complaints of Low pm1 Back Pain, Leg Pain. 13:33 The patient presents with pain that is acute. The symptoms are located in the coccyx pm1 area, left groin. The pain does not radiate. The problem was sustained during a fall, fell on buttocks three weeks ago. Patient is able to walk after fall injury. Onset: The symptoms/episode began/occurred 3 week(s) ago. Modifying factors: The patient symptoms are alleviated by remaining still, the patient symptoms are aggravated by movement, walking. Associated signs and symptoms: Pertinent negatives: abdominal pain, dysuria, fever, incontinence. Severity of symptoms: in the emergency department the symptoms have improved, mildly. The patient has not experienced similar symptoms in the past. The patient has not recently seen a physician. Historical: - Allergies: 11:25 PENICILLINS; jl7 - PMHx: 11:25 Rheumatoid arthritis; jl7 - Immunization history:: Adult Immunizations up to date, Client reports having NOT received the Covid vaccine. - Social history:: Smoking status: Patient denies any tobacco usage or history of. ROS: 13:33 Constitutional: Negative for fever, chills, and weight loss, Cardiovascular: Negative pm1 for chest pain, palpitations, and edema, Respiratory: Negative for shortness of breath, cough, wheezing, and pleuritic chest pain, Abdomen/GI: Negative for abdominal pain, nausea, vomiting, diarrhea, and constipation. 13:33 : Negative for injury, bleeding, discharge, and swelling, MS/Extremity: Negative for injury and deformity, Skin: Negative for injury, rash, and discoloration, Neuro: Negative for headache, weakness, numbness, tingling, and seizure. 13:33 Back: Positive for of the sacrum, Pain. 13:33 All other systems are negative. Exam: 13:33 Constitutional: This is a well developed, well nourished patient who is awake, alert, pm1 and in no acute distress. Head/Face: Normocephalic, atraumatic. 13:33 Neck: Trachea midline, no thyromegaly or masses palpated, and no cervical lymphadenopathy. Supple, full range of motion without nuchal rigidity, or vertebral point tenderness. No Meningismus. Chest/axilla: Normal chest wall appearance and motion. Nontender with no deformity. No lesions are appreciated. 13:33 Abdomen/GI: Soft, non-tender, with normal bowel sounds. No distension or tympany. No guarding or rebound. No evidence of tenderness throughout. 13:33 Skin: Warm, dry with normal turgor. Normal color with no rashes, no lesions, and no evidence of cellulitis. 13:33 Eyes: Exam is negative for acute changes, Periorbital structures: appear normal, Extraocular movements: no acute changes, Conjunctiva: no acute changes, no injection. 13:33 ENT: Mouth: no acute changes, Lips: normal, Oral mucosa: normal, pink and intact, moist. 13:33 Cardiovascular: Exam negative for acute changes, Rate: normal, Rhythm: regular, Pulses: no pulse deficits are appreciated. 13:33 Respiratory: Exam negative for acute changes, respiratory distress, shortness of breath. 13:33 Back: ROM is normal, vertebral tenderness, is not appreciated. 13:33 Musculoskeletal/extremity: Extremities: grossly normal except: noted in the left groin/inner thigh: tenderness, There is no evidence of decreased ROM, deformity, ROM: intact in all extremities, full active range of motion, in the left leg and left hip, full passive range of motion, in the left leg and left hip, Circulation is intact in all extremities. 13:33 Neuro: Exam negative for acute changes, Orientation: is normal, Mentation: is normal, Motor: is normal, moves all fours. Vital Signs: 11:23 BP 189 / 66; Pulse 64; Resp 17; Temp 96.9; Pulse Ox 98% ; Weight 56.7 kg; Pain 10/10; jl7 13:10 BP 160 / 67; Pulse 78; Resp 18; Temp 97.3(O); Pulse Ox 99% on R/A; Pain 9/10; ld1 13:46 BP 157 / 48; Pulse 86; Resp 18; Pulse Ox 100% on R/A; ld1 MDM: 13:09 Patient medically screened. pm1 15:27 Data reviewed: vital signs. Data interpreted: Pulse oximetry: on room air is 100 %. pm1 Interpretation: normal. Counseling: I had a detailed discussion with the patient and/or guardian regarding: the historical points, exam findings, and any diagnostic results supporting the discharge/admit diagnosis, radiology results, the need for outpatient follow up, to return to the emergency department if symptoms worsen or persist or if there are any questions or concerns that arise at home. 04/19 13:12 Order name: Sacrum And Coccyx XRAY; Complete Time: 14:12 pm1 04/19 13:12 Order name: Hip Left 2 View XRAY; Complete Time: 14:12 pm1 Administered Medications: 13:36 Drug: traMADol 50 mg Route: PO; ld1 15:45 Follow up: Response: No adverse reaction; Pain is decreased iw Disposition Summary: 04/19/21 15:29 Discharge Ordered Location: Home pm1 Problem: new pm1 Symptoms: have improved pm1 Condition: Stable pm1 Diagnosis - Fracture of other parts of pelvis - Mild left pubic symphysis fracture pm1 Followup: pm1 - With: Emergency Department - When: As needed - Reason: Worsening of condition Followup: pm1 - With: Private Physician - When: 2 - 3 days - Reason: Recheck today's complaints, Continuance of care, Re-evaluation by your physician Discharge Instructions: - Discharge Summary Sheet pm1 - Simple Pelvic Fracture, Adult pm1 Forms: - Medication Reconciliation Form pm1 - Thank You Letter pm1 - Antibiotic Education pm1 - Prescription Opioid Use pm1 Prescriptions: - Tramadol 50 mg Oral Tablet - take 1 tablet by ORAL route every 8 hours as needed; 12 tablet; Refills: 0, pm1 Product Selection Permitted Addendum: 04/20/2021 18:45 Co-signature as Attending Physician, Mateo Villasenor MD I agree with the assessment and c thurston plan of care. Signatures: Dispatcher [employer] Mateo Allen MD MD cha Marinas, Patrick, CLOTH MERCERIZING SUPERVISOR CLOTH MERCERIZING SUPERVISOR pm1 Jose Villalobos RN RN jl7 Kim Vasquez RN RN [email or web address] Mesha Gallegos RN iw Corrections: (The following items were deleted from the chart) 04/19 11:27 11:25 PMHx: Arthritis; jl7 jl7
--- NOTE | 2021-04-19 15:30 | ER ---
Nurse's Notes [facility] Name: Maya Burrell Age: 81 yrs Sex: Female : 1940 Arrival Date: 04/19/2021 Time: 10:29 Bed 23 Private MD: Diagnosis: Fracture of other parts of pelvis-Mild left pubic symphysis fracture Presentation: 04/19 11:23 Chief complaint: Patient states: Fell 3 weeks ago and reports coccyx and left leg pain. jl7 Coronavirus screen: Client denies travel out of the [place] in the last 14 days. At this time, the client does not indicate any symptoms associated with coronavirus-19. Ebola Screen: No symptoms or risks identified at this time. Initial Sepsis Screen: Does the patient meet any 2 criteria? No. Patient's initial sepsis screen is negative. Does the patient have a suspected source of infection? No. Patient's initial sepsis screen is negative. Risk Assessment: Do you want to hurt yourself or someone else? Patient reports no desire to harm self or others. Onset of symptoms was March 31, 2021. 11:23 Method Of Arrival: Wheelchair jl7 11:23 Acuity: JERRY 4 jl7 Historical: - Allergies: 11:25 PENICILLINS; jl7 - PMHx: 11:25 Rheumatoid arthritis; jl7 - Immunization history:: Adult Immunizations up to date, Client reports having NOT received the Covid vaccine. - Social history:: Smoking status: Patient denies any tobacco usage or history of. Screenin:10 Abuse screen: Denies threats or abuse. Denies injuries from another. Nutritional ld1 screening: No deficits noted. Tuberculosis screening: No symptoms or risk factors identified. Fall Risk None identified. Assessment: 13:10 General: Appears in no apparent distress. uncomfortable, Behavior is calm, cooperative, ld1 appropriate for age. Pain: Complains of pain in left leg Pain does not radiate. Pain currently is 9 out of 10 on a pain scale. Quality of pain is described as throbbing, Pain began gradually, Is continuous. Neuro: Level of Consciousness is awake, alert, obeys commands, Oriented to person, place, time, situation. Cardiovascular: Capillary refill < 3 seconds Patient's skin is warm and dry. Respiratory: Airway is patent Respiratory effort is even, unlabored, Respiratory pattern is regular, symmetrical. GI: Abdomen is flat, non-distended. : No signs and/or symptoms were reported regarding the genitourinary system. EENT: No signs and/or symptoms were reported regarding the EENT system. Derm: No signs and/or symptoms reported regarding the dermatologic system. Musculoskeletal: Reports pain in left leg. 13:46 Reassessment: Patient appears in no apparent distress at this time. Patient is alert, ld1 oriented x 3, equal unlabored respirations, skin warm/dry/pink. Vital Signs: 11:23 BP 189 / 66; Pulse 64; Resp 17; Temp 96.9; Pulse Ox 98% ; Weight 56.7 kg; Pain 10/10; jl7 13:10 BP 160 / 67; Pulse 78; Resp 18; Temp 97.3(O); Pulse Ox 99% on R/A; Pain 9/10; ld1 13:46 BP 157 / 48; Pulse 86; Resp 18; Pulse Ox 100% on R/A; ld1 ED Course: 10:29 Patient arrived in ED. rg4 11:25 Triage completed. jl7 11:25 Arm band placed on right wrist. jl7 12:55 Kim Vasquez, RUBEN is Primary Nurse. ld1 13:04 Stephen Barksdale NP is PHCP. pm1 13:04 Mateo Villasenor MD is Attending Physician. pm1 13:10 Patient has correct armband on for positive identification. Bed in low position. Call ld1 light in reach. Side rails up X2. Pulse ox on. NIBP on. Door closed. Noise minimized. Warm blanket given. 13:10 No provider procedures requiring assistance completed. ld1 13:52 Sacrum And Coccyx XRAY In Process Unspecified. EDMS 13:52 Hip Left 2 View XRAY In Process Unspecified. EDMS 15:44 Patient did not have IV access during this emergency room visit. iw Administered Medications: 13:36 Drug: traMADol 50 mg Route: PO; ld1 15:45 Follow up: Response: No adverse reaction; Pain is decreased iw Outcome: 15:29 Discharge ordered by MD. pm1 15:45 Discharged to home via wheelchair, with family. iw 15:45 Condition: good 15:45 Discharge instructions given to patient, family, Instructed on discharge instructions, follow up and referral plans. medication usage, Demonstrated understanding of instructions, follow-up care, medications, Prescriptions given X 1. 15:45 Patient left the ED. iw Signatures: Dispatcher [employer] Mesha Evans RN RN iw Stephen Barksdale MECHANICAL ENGINEERING PROFESSOR MECHANICAL ENGINEERING PROFESSOR pm1 Viktoriya Hicks rg4 Jose Villalobos RN RN jl7 Kim Vasquez RN RN ld1 Corrections: (The following items were deleted from the chart) 11:27 11:25 PMHx: Arthritis; skyla crum
[2021-04-19 15:54] VITALS: TEMP 97.3
[2021-04-19 15:55] VITALS: BP 157/48; O2SAT 100
== END 2021-04-19 15:45 | disposition home or self-care (01) ==
LOC: ER 10:27
DX: S32.89XA Fracture of other parts of pelvis, initial encounter for closed fracture (principal); W18.30XA Fall on same level, unspecified, initial encounter; Y93.01 Activity, walking, marching and hiking; Z88.0 Allergy status to penicillin
CPT/HCPCS: 72220; 99284

== ENCOUNTER 2024-03-06 14:20 | Inpatient (IN) | payer OTHER ==
[2024-03-06] MEDS ORDERED: ONDANSETRON 4 MG/2 ML VIAL ONE (14:41)
[2024-03-06] MEDS ORDERED: MORPHINE 4 MG/ML SYR ONE (14:41)
[2024-03-06] MEDS ORDERED: FAMOTIDINE 20 MG/2 ML VIAL IV ONE (14:42)
[2024-03-06] MEDS ORDERED: NA CHLORIDE 0.9% 500 ML ONE (14:42)
[2024-03-06] MEDS ORDERED: NA CHLORIDE 0.9% 1,000 ML ONE ×3 (14:43→22:31)
[2024-03-06 15:18] LABS: Absolute Eosinophils 0.4 K/uL (0-0.5); Absolute Lymphocytes (CBC) 1.3 K/uL (0.7-4.9); Absolute Monocytes 1.4 K/uL (0.1-1.3); Absolute Neutrophil 7.2 K/uL (1.8-8.0); Basophils % 0.4 % (0-1.3); Eosinophils % 3.8 % (0-4.4); Hematocrit 34.3 % (36.0-45.0); Hemoglobin 11.4 g/dL (12.0-15.0); Lymphocytes % 12.7 % (15.3-44.8); MCHC 33.2 g/dL (32.0-36.0); MCV 87.3 fL (80-100); MPV 7.6 fL (7.6-11.3); Monocytes % 13.3 % (3.3-12.3); Neutrophils % 69.8 % (41.7-73.7); Platelets 308 thou/uL (152-406); RBC Red Blood Cell Count 3.93 M/uL (3.86-4.86); Red Cell Distribution Width 17.5 % (12.1-15.2)
[2024-03-06 15:24] LABS: PT Prothrombin Time 12.1 SECONDS (9.5-12.5); Protime INR 1.1
[2024-03-06 15:41] LABS: Albumin 3.1 g/dL (3.4-5.0); Albumin/Globulin Ratio 0.8 (1.1-1.8); Anion Gap 10.3 mEq/L (5.0-15.0); Bilirubin Direct 0.2 mg/dL (0-0.2); Bilirubin Indirect, Calculated 0.5 mg/dL (0.2-0.8); Bilirubin Total 0.7 mg/dL (0.2-1.0); Globulin 3.8 g/dL (2.3-3.5); Magnesium 2.6 mg/dL (1.6-2.4); Potassium 3.3 mEq/L (3.5-5.1); Protein, Total 6.9 g/dL (6.4-8.2)
[2024-03-06 15:48] LABS: Troponin High Sensitivity 92.3 pg/mL (<58.9)
--- NOTE | 2024-03-06 16:25 | RAD REPORT ---
EXAM DESCRIPTION: [place] Single View03/06/2024 3:15 pm CLINICAL HISTORY: ABDOMINAL DISTENTION COMPARISON: Chest Pa And Lat (2 Views) dated 04/27/2016; CHEST SINGLE VIEW dated 06/02/2012; CHEST PA AND LAT 2 VIEW dated 04/06/2010; CHEST SINGLE VIEW dated 11/13/2009 TECHNIQUE: Portable AP view of the chest. FINDINGS: The lungs are clear. No pneumothorax or effusion. The cardiomediastinal contours are unre markable. IMPRESSION: No acute cardiopulmonary process.
--- NOTE | 2024-03-06 17:18 | RAD REPORT ---
EXAM DESCRIPTION: CT - Abdomen Pelvis W Contrast - 03/06/2024 4:12 pm CLINICAL HISTORY: ABD PAIN COMPARISON: No comparisons TECHNIQUE: Thin cut axial CT imaging of the abdomen and pelvis was performed following intravenous a dministration of iodinated contrast. Multiplanar reformats were generated and reviewed. All CT scans are performed using dose optimization technique as appropriate and may include automated exposure control or mA/KV adjustment according to patient size. FINDINGS: No suspicious findings in the lung bases. The liver shows small hypoattenuating lesions the largest measuring 11 mm in the peripheral right lob e suggestive of cysts. Spleen, adrenal glands, and pancreas show no suspicious findings. Gallbladder was surgically removed. Prominence of the common bile duct and central intrahepatic biliary radicles likely relates to reservoir effect. Symmetric renal function is seen with no suspicious focal mass. No hydroureteronephrosis or calculi o n the left. Moderate right hydronephrosis and proximal hydroureter. 2 mm calculus present along the r ight mid ureter. No dilated bowel loops or bowel wall thickening. No free air, free fluid or inflammatory stranding. N o hernia, mass or bulky lymphadenopathy. The urinary bladder is without significant finding. No suspicious bony findings. Healing or healed fractures along the anterior right fifth and sixth rib s. IMPRESSION: Moderate right hydronephrosis and proximal hydroureter. 2 mm calculus along the right mi d ureter. Healing or healed anterior right fifth and sixth rib fractures. Other incidental findings as above. The findings were communicated to Milady Lopez on 03/06/2024 at 17:12 hours.
--- NOTE | 2024-03-06 17:47 | ER ---
Nurse's Notes [facility] Name: Maya Burrell Age: 84 yrs Sex: Female : 1940 Arrival Date: 03/06/2024 Time: 14:20 Bed 16 Private MD: Diagnosis: Abdominal tenderness;Hydronephrosis with renal and ureteral calculous obstruction-2 MM PROXIMAL;Hypokalemia;Abnormal levels of other serum enzymes-92 Troponin Presentation: 03/06 14:27 Chief complaint: Patient states: pain started right lower quadrant about 1pm. ko1 Coronavirus screen: At this time, the client does not indicate any symptoms associated with coronavirus-19. Ebola Screen: No symptoms or risks identified at this time. Initial Sepsis Screen: Does the patient meet any 2 criteria? No. Patient's initial sepsis screen is negative. Does the patient have a suspected source of infection? No. Patient's initial sepsis screen is negative. Risk Assessment: Do you want to hurt yourself or someone else? Patient reports no desire to harm self or others. Onset of symptoms is unknown. 14:27 Method Of Arrival: Wheelchair ko1 14:27 Acuity: JERRY 3 ko1 Triage Assessment: 14:31 General: Appears distressed, ill, Behavior is calm, cooperative, appropriate for age. ko1 Pain: Complains of pain in right lower quadrant. GI: Reports nausea. Historical: - Allergies: 14:31 PENICILLINS; ko1 - PMHx: 14:31 Rheumatoid Arthritis; ko1 - PSHx: 14:31 broken leg surgery (Rheumatoid Arthritis); ko1 - Immunization history:: Adult Immunizations unknown. - Infectious Disease History:: Denies. - Social history:: Smoking status: Patient denies any tobacco usage or history of. Screenin:04 [facility] ED Fall Risk Assessment (Adult) History of falling in the last 3 months, bp including since admission No falls in past 3 months (0 pts). Abuse screen: Denies threats or abuse. Denies injuries from another. Nutritional screening: No deficits noted. Tuberculosis screening: No symptoms or risk factors identified. Assessment: 14:45 General: Appears uncomfortable, Behavior is cooperative, appropriate for age, anxious. bp Neuro: Level of Consciousness is awake, alert, obeys commands, Oriented to Appropriate for age. GI: Bowel sounds present X 4 quads. Abd is soft X 4 quads. : No signs and/or symptoms were reported regarding the genitourinary system. 16:30 Reassessment: No changes from previously documented assessment. Patient is alert, bp oriented x 3, equal unlabored respirations, skin warm/dry/pink. 20:50 General: Appears in no apparent distress. comfortable, Behavior is calm, cooperative, jw7 appropriate for age. Pain: Denies pain. Neuro: Level of Consciousness is awake, alert, obeys commands, Oriented to person, place, time, situation. Cardiovascular: Heart tones S1 S2 present Capillary refill < 3 seconds Clubbing of nail beds is absent JVD is absent Patient's skin is warm and dry. 20:50 Respiratory: Airway is patent Trachea midline Respiratory effort is even, unlabored, jw7 Respiratory pattern is regular, symmetrical. GI: Abdomen is flat, non-distended, Bowel sounds present X 4 quads. Abd is soft X 4 quads. : No deficits noted. No signs and/or symptoms were reported regarding the genitourinary system. EENT: No deficits noted. No signs and/or symptoms were reported regarding the EENT system. Derm: Skin is intact, is healthy with good turgor, Skin is dry, Skin is normal, Skin temperature is warm. Musculoskeletal: Circulation, motion, and sensation intact. Range of motion: intact in all extremities. 20:50 General: PT Hospitalized see [facility] for Assessments and Vital Signs. jw7 03/07 05:12 General: Jose G (Son): [phone]. jw7 Vital Signs: 03/06 14:27 BP 169 / 62; Pulse 76; Resp 18; Temp 97; Pulse Ox 100% ; ko1 16:29 BP 191 / 78; Pulse 78; Resp 15; Pulse Ox 95% on R/A; bp 17:29 BP 177 / 68; Pulse 75; Resp 18; Pulse Ox 95% on R/A; ph ED Course: 14:21 Patient arrived in ED. mr 14:21 Mateo Villasenor MD is Attending Physician. [facility] 14:30 Triage completed. ko1 14:31 Arm band placed on right wrist. Patient placed in an exam room, on a stretcher, on ko1 monitoring tech, on pulse oximetry, Patient notified of wait time. 14:35 Vinnie Ahumada, RN is Primary Nurse. bp 14:45 EKG done, by ED staff, reviewed by Mateo Villasenor MD. em1 15:03 Inserted saline lock: 22 gauge in right antecubital area, using aseptic technique. bp Blood collected. 15:04 Patient has correct armband on for positive identification. bp 15:04 Initial lab(s) drawn, by me, sent to lab. First set of blood cultures drawn by me. bp 15:17 XRAY Chest (1 view) In Process Unspecified. EDMS 15:57 Notified ED physician of a critical lab result(s). lactic acid 2.2. me1 16:13 CT Abd/Pelvis - IV Contrast Only In Process Unspecified. EDMS 17:35 Chandrika Cuellar MD is Hospitalizing Provider. jalil 17:56 Prince Merino MD is Hospitalizing Provider. jalil 20:50 Mara Church RN is Primary Nurse. jw7 20:50 No provider procedures requiring assistance completed. Patient admitted, IV remains in jw7 place. 22:52 Primary Nurse role handed off by Vinnie Ahumada, RN as6 23:28 Provided Education on: Use of call Light. jw7 Administered Medications: 15:05 Drug: NS 0.9% IV 500 ml IV at bolus once Route: IV; Rate: bolus; Site: right bp antecubital; 23:34 Follow up: Response: No adverse reaction; IV Status: Completed infusion; IV Intake: jw7 500ml 15:05 Drug: NS 0.9% IV 1000 ml IV at 125 ml/hr continuous Route: IV; Rate: 125 ml/hr; Site: bp right antecubital; 23:34 Follow up: Response: No adverse reaction; IV Status: Completed infusion; IV Intake: jw7 1000ml 15:05 Drug: morphine IVP or IV 2 mg IVP once over 4 mins Route: IVP; Infused Over: 4 mins; bp Site: right antecubital; 23:35 Follow up: Response: No adverse reaction; Marked relief of symptoms; Pain is decreased jw7 15:05 Drug: morphine IVP or IV 2 mg IVP once over 4 mins Route: IVP; Infused Over: 4 mins; bp Site: right antecubital; 23:35 Follow up: Response: No adverse reaction; Marked relief of symptoms; Pain is decreased jw7 15:05 Drug: Ondansetron IVP 4 mg IVP once; over 2 minutes Route: IVP; Site: right antecubital;bp 23:35 Follow up: Response: No adverse reaction jw7 15:05 Drug: Famotidine IVP 20 mg IVP once; dilute with 10 mL 0.9% NaCl; give over 2 minutes bp Route: IVP; Site: right antecubital; 23:35 Follow up: Response: No adverse reaction jw7 17:24 CANCELLED (Duplicate Order): [id number] mg 100 ml IVPB at 200 ml/hr once over 30 jalil mins 18:00 Drug: Ciprofloxacin IVPB 400 mg 200 ml IVPB once over 60 mins Volume: 200 ml; Route: bp IVPB; Infused Over: 60 mins; Site: right antecubital; 23:36 Follow up: Response: No adverse reaction; IV Status: Completed infusion; IV Intake: jw7 200ml 18:00 Drug: NS 0.9% IV 1000 ml IV at 1 bolus Per protocol; 1000 mL bolus Route: IV; Rate: 1 bp bolus; Site: right antecubital; 23:36 Follow up: Response: No adverse reaction; IV Status: Completed infusion; IV Intake: jw7 1000ml 18:00 Drug: morphine IVP or IV 2 mg IVP once over 4 mins Route: IVP; Infused Over: 4 mins; bp Site: right antecubital; 23:34 Follow up: Response: No adverse reaction; Marked relief of symptoms; Pain is decreased jw7 18:00 Drug: Ketorolac IVP 15 mg IVP once Route: IVP; Site: right antecubital; bp 23:34 Follow up: Response: No adverse reaction; Marked relief of symptoms; Pain is decreased jw7 18:00 Drug: Aspirin PO Chewable Tablet 162 mg PO once Route: PO; bp 23:33 Follow up: Response: No adverse reaction jw7 18:00 Drug: Flomax PO 0.4 mg PO once Route: PO; bp 23:33 Follow up: Response: No adverse reaction jw7 Medication: 20:50 VIS not applicable for this client. jw7 Intake: 23:34 IV: 500ml; Total: 500ml. jw7 23:34 IV: 1000ml; Total: 1500ml. jw7 23:36 IV: 1000ml; Total: 2500ml. jw7 23:36 IV: 200ml; Total: 2700ml. jw7 Outcome: 17:46 Decision to Hospitalize by Provider. jalil 20:50 Admitted to ER Hold. Please see [facility] for further documentation. jw7 20:50 Condition: stable 20:50 Instructed on the need for admit, Demonstrated understanding of instructions, 03/07 11:54 Patient left the ED. cp4 Signatures: Dispatcher [employer] EDMS Mateo Villasenor MD MD cha Rivera, Mago, Reg [employer] [place] em1 Lucero Cavazos, RUBEN RN Vinnie Ahumada, RN RN bp Prasanth Cai RN RN as6 Mara Church, RN RN jw7 Marilee Romero RN RN ko1 Angela Harris RN RN me1 Carlota Lala cp4 Corrections: (The following items were deleted from the chart) 03/06 16:31 16:29 Pulse 78bpm; Resp 15bpm; Pulse Ox 95% RA; bp bp 23:28 23:27 VIS not applicable for this client. jw7 jw7 23:15 Mara Church, RN is Primary Nurse. jw7 jw7 23:27 No provider procedures requiring assistance completed. jw7 jw7 23:27 Patient admitted, IV remains in place. jw7 jw7 23:27 Admitted to ER Hold. Please see [facility] for further documentation. jw7 jw7 23:27 Condition: stable jw7 jw7 23:27 Instructed on the need for admit, Demonstrated understanding of instructions, jw7 jw7
--- NOTE | 2024-03-06 17:48 | EDPHYS ---
Physician Documentation [facility] Name: Maya Burrell Age: 84 yrs Sex: Female : 1940 Arrival Date: 03/06/2024 Time: 14:20 Bed 16 Private MD: ED Physician Mateo Villasenor HPI: 03/06 17:31 This 84 yrs old Female presents to ER via Wheelchair with complaints of jalil Abdominal Pain, Vomiting. 17:31 The patient presents to the emergency department with nausea, vomiting, abdominal pain, jalil of the right lower quadrant. Onset: The symptoms/episode began/occurred just prior to arrival, this morning. Possible causes: unknown. The symptoms are aggravated by nothing. The symptoms are alleviated by nothing. Associated signs and symptoms: The patient has no apparent associated signs or symptoms. Severity of symptoms: At their worst the symptoms were mild moderate in the emergency department the symptoms are unchanged. The patient has not experienced similar symptoms in the past. Historical: - Allergies: 14:31 PENICILLINS; ko1 - PMHx: 14:31 Rheumatoid Arthritis; ko1 - PSHx: 14:31 broken leg surgery (Rheumatoid Arthritis); ko1 - Immunization history:: Adult Immunizations unknown. - Infectious Disease History:: Denies. - Social history:: Smoking status: Patient denies any tobacco usage or history of. ROS: 17:32 Constitutional: Negative for fever, chills, and weight loss, Eyes: Negative for injury, jalil pain, redness, and discharge, ENT: Negative for injury, pain, and discharge, Neck: Negative for injury, pain, and swelling, Cardiovascular: Negative for chest pain, palpitations, and edema, Respiratory: Negative for shortness of breath, cough, wheezing, and pleuritic chest pain, Back: Negative for injury and pain, : Negative for injury, bleeding, discharge, and swelling, MS/Extremity: Negative for injury and deformity, Skin: Negative for injury, rash, and discoloration, Neuro: Negative for headache, weakness, numbness, tingling, and seizure, Psych: Negative for depression, anxiety, suicide ideation, homicidal ideation, and hallucinations, Allergy/Immunology: Negative for hives, rash, and allergies, Endocrine: Negative for neck swelling, polydipsia, polyuria, polyphagia, and marked weight changes, Hematologic/Lymphatic: Negative for swollen nodes, abnormal bleeding, and unusual bruising, 17:32 Abdomen/GI: Positive for abdominal pain, nausea and vomiting, of the right lower quadrant, Exam: 17:32 Constitutional: This is a well developed, well nourished patient who is awake, alert, jalil and in no acute distress. Head/Face: Normocephalic, atraumatic. Eyes: Pupils equal round and reactive to light, extra-ocular motions intact. Lids and lashes normal. Conjunctiva and sclera are non-icteric and not injected. Cornea within normal limits. Periorbital areas with no swelling, redness, or edema. ENT: Nares patent. No nasal discharge, no septal abnormalities noted. Tympanic membranes are normal and external auditory canals are clear. Oropharynx with no redness, swelling, or masses, exudates, or evidence of obstruction, uvula midline. Mucous membranes moist. Neck: Trachea midline, no thyromegaly or masses palpated, and no cervical lymphadenopathy. Supple, full range of motion without nuchal rigidity, or vertebral point tenderness. No Meningismus. Chest/axilla: Normal chest wall appearance and motion. Nontender with no deformity. No lesions are appreciated. Cardiovascular: Regular rate and rhythm with a normal S1 and S2. No gallops, murmurs, or rubs. Normal PMI, no JVD. No pulse deficits. Respiratory: Lungs have equal breath sounds bilaterally, clear to auscultation and percussion. No rales, rhonchi or wheezes noted. No increased work of breathing, no retractions or nasal flaring. Abdomen/GI: Soft, non-tender, with normal bowel sounds. No distension or tympany. No guarding or rebound. No evidence of tenderness throughout. Back: No spinal tenderness. No costovertebral tenderness. Full range of motion. Skin: Warm, dry with normal turgor. Normal color with no rashes, no lesions, and no evidence of cellulitis. MS/ Extremity: Pulses equal, no cyanosis. Neurovascular intact. Full, normal range of motion. Neuro: Awake and alert, GCS 15, oriented to person, place, time, and situation. Cranial nerves II-XII grossly intact. Motor strength 5/5 in all extremities. Sensory grossly intact. Cerebellar exam normal. Normal gait. Psych: Awake, alert, with orientation to person, place and time. Behavior, mood, and affect are within normal limits. 17:32 ECG was reviewed by the Attending Physician. Vital Signs: 14:27 BP 169 / 62; Pulse 76; Resp 18; Temp 97; Pulse Ox 100% ; ko1 16:29 BP 191 / 78; Pulse 78; Resp 15; Pulse Ox 95% on R/A; bp 17:29 BP 177 / 68; Pulse 75; Resp 18; Pulse Ox 95% on R/A; ph MDM: 14:21 Patient medically screened. [facility] 17:34 Data reviewed: vital signs, nurses notes, lab test result(s), cardiac enzymes, troponin jalil i, electrolytes, hepatic panel, EKG, radiologic studies. Consideration of Admission/Observation Patient was admitted/placed on observation. Escalation of care including admission/observation considered. I considered the following discharge prescriptions or medication management in the emergency department Medications were administered in the Emergency Department. See MAR. Test considered but Not performed: Ultrasound no abd usg. Care significantly affected by the following chronic conditions: RA. Counseling: I had a detailed discussion with the patient and/or guardian regarding the historical points, exam findings, and any diagnostic results supporting the discharge/admit diagnosis, lab results, radiology results, the need for further work-up and treatment in the hospital. 03/06 14:23 Order name: Basic Metabolic Panel; Complete Time: 16:34 [facility] 03/06 14:23 Order name: CBC with Diff; Complete Time: 16:34 [facility] 03/06 14:23 Order name: LFT's; Complete Time: 16:34 [facility] 03/06 14:23 Order name: Magnesium; Complete Time: 16:34 [facility] 03/06 14:23 Order name: NT PRO-BNP; Complete Time: 16:34 [facility] 03/06 14:23 Order name: PT-INR; Complete Time: 16:34 [facility] 03/06 14:23 Order name: Troponin HS; Complete Time: 16:34 [facility] 03/06 14:23 Order name: Lipase; Complete Time: 16:34 [facility] 03/06 14:23 Order name: Urinalysis w/ reflexes jalil 03/06 14:23 Order name: Lactate w/ 2H reflex if indic.; Complete Time: 16:34 [facility] 03/06 15:03 Order name: Blood Culture Adult (2) bp 03/06 20:02 Order name: Lactate Sepsis 2 HR Follow-up EDMS 03/06 21:05 Order name: Lactate w/ 2H reflex if indic. [facility] 03/06 21:08 Order name: Troponin High Sensitivity [facility] 03/06 22:46 Order name: Lipid Profile [facility] 03/07 03:20 Order name: Troponin High Sensitivity [facility] 03/06 14:23 Order name: XRAY Chest (1 view); Complete Time: 16:34 [facility] 03/06 14:23 Order name: CT Abd/Pelvis - IV Contrast Only; Complete Time: 17:24 [facility] 03/06 19:13 Order name: CONS Physician Consult [facility] 03/06 14:23 Order name: Cardiac monitoring; Complete Time: 14:37 [facility] 03/06 14:23 Order name: EKG - Nurse/Tech; Complete Time: 14:42 [facility] 03/06 14:23 Order name: IV Saline Lock; Complete Time: 15:10 [facility] 03/06 14:23 Order name: Labs collected and sent; Complete Time: 15:10 [facility] 03/06 14:23 Order name: O2 Per Protocol; Complete Time: 14:37 [facility] 03/06 14:23 Order name: O2 Sat Monitoring; Complete Time: 14:37 [facility] EC:32 Rate is 74 beats/min. Rhythm is regular. QRS [place] is Normal. LA interval is normal. QRS jalil interval is normal. QT interval is normal. T waves are Normal. No ST changes noted. Clinical impression: Normal ECG and No evidence of ischemia. Interpreted by me. Reviewed by me. Administered Medications: 15:05 Drug: NS 0.9% IV 500 ml IV at bolus once Route: IV; Rate: bolus; Site: right bp antecubital; 23:34 Follow up: Response: No adverse reaction; IV Status: Completed infusion; IV Intake: jw7 500ml 15:05 Drug: NS 0.9% IV 1000 ml IV at 125 ml/hr continuous Route: IV; Rate: 125 ml/hr; Site: bp right antecubital; 23:34 Follow up: Response: No adverse reaction; IV Status: Completed infusion; IV Intake: jw7 1000ml 15:05 Drug: morphine IVP or IV 2 mg IVP once over 4 mins Route: IVP; Infused Over: 4 mins; bp Site: right antecubital; 23:35 Follow up: Response: No adverse reaction; Marked relief of symptoms; Pain is decreased jw7 15:05 Drug: morphine IVP or IV 2 mg IVP once over 4 mins Route: IVP; Infused Over: 4 mins; bp Site: right antecubital; 23:35 Follow up: Response: No adverse reaction; Marked relief of symptoms; Pain is decreased jw7 15:05 Drug: Ondansetron IVP 4 mg IVP once; over 2 minutes Route: IVP; Site: right antecubital;bp 23:35 Follow up: Response: No adverse reaction jw7 15:05 Drug: Famotidine IVP 20 mg IVP once; dilute with 10 mL 0.9% NaCl; give over 2 minutes bp Route: IVP; Site: right antecubital; 23:35 Follow up: Response: No adverse reaction jw7 17:24 CANCELLED (Duplicate Order): [id number] mg 100 ml IVPB at 200 ml/hr once over 30 jalil mins 18:00 Drug: Ciprofloxacin IVPB 400 mg 200 ml IVPB once over 60 mins Volume: 200 ml; Route: bp IVPB; Infused Over: 60 mins; Site: right antecubital; 23:36 Follow up: Response: No adverse reaction; IV Status: Completed infusion; IV Intake: jw7 200ml 18:00 Drug: NS 0.9% IV 1000 ml IV at 1 bolus Per protocol; 1000 mL bolus Route: IV; Rate: 1 bp bolus; Site: right antecubital; 23:36 Follow up: Response: No adverse reaction; IV Status: Completed infusion; IV Intake: jw7 1000ml 18:00 Drug: morphine IVP or IV 2 mg IVP once over 4 mins Route: IVP; Infused Over: 4 mins; bp Site: right antecubital; 23:34 Follow up: Response: No adverse reaction; Marked relief of symptoms; Pain is decreased jw7 18:00 Drug: Ketorolac IVP 15 mg IVP once Route: IVP; Site: right antecubital; bp 23:34 Follow up: Response: No adverse reaction; Marked relief of symptoms; Pain is decreased jw7 18:00 Drug: Aspirin PO Chewable Tablet 162 mg PO once Route: PO; bp 23:33 Follow up: Response: No adverse reaction jw7 18:00 Drug: Flomax PO 0.4 mg PO once Route: PO; bp 23:33 Follow up: Response: No adverse reaction jw7 Disposition Summary: 03/06/24 17:46 Hospitalization Ordered Notes: Hospitalization Status: Observation jalil Condition: Fair jalil Problem: new jalil Symptoms: have improved jalil Bed/Room Type: Standard jalil Provider: Prince Angelique(03/06/24 17:56) jalil Location: Telemetry/MedSurg (observation)(03/07/24 10:54) em1 Room Assignment: 229(03/07/24 10:54) em1 Diagnosis - Abdominal tenderness jalil - Hydronephrosis with renal and ureteral calculous obstruction - 2 MM PROXIMAL jalil - Hypokalemia jalil - Abnormal levels of other serum enzymes - 92 Troponin jalil Forms: - Medication Reconciliation Form jalil - SBAR form jalil - Leadership Thank You Letter jalil Signatures: Dispatcher [employer] EDMS Mateo Villasenor MD MD cha Martinez, [employer] em1 Vinnie Ahumada, RN RN bp Marilee Romero RN RN ko1 Vanessa Rosario rv1 Mara Church RN jw7 Corrections: (The following items were deleted from the chart) 14:24 14:24 Chest Single View+RAD.RAD.BRZ ordered. EDMS EDMS 14:24 14:24 Abdomen Pelvis W Con+CT.RAD.BRZ ordered. EDMS EDMS 17:24 16:36 metroNIDAZOLE IVPB 500 mg 100 ml IVPB at 200 ml/hr once over 30 mins ordered. jalil jalil 17:56 17:46 Chandrika Cuellar jalil jalil 20:53 17:46 Telemetry/MedSurg (observation) jalil rv1 20:53 17:46 jalil rv1 03/07 10:54 03/06 20:53 [facility] ER HOLD rv1 em1 03/07 10:54 03/06 20:53 ERHOLD- rv1 em1
[2024-03-06] MEDS ORDERED: MORPHINE 2 MG/ML SYR ONE (18:10)
[2024-03-06] MEDS ORDERED: KETOROLAC 30 MG/ML INJ ONE (18:11)
[2024-03-06] MEDS ORDERED: ASPIRIN 81 MG CHEWABLE TABLET ONE (18:11)
[2024-03-06] MEDS ORDERED: TAMSULOSIN 0.4 MG SR CAP ONE (18:11)
[2024-03-06] MEDS ORDERED: CIPROFLOXACIN 400mg IV 400 MG/200 ML BAG IV ONE (18:12)
[2024-03-06 19:03] LABS: Specific Gravity 1.023 (1.005-1.030); Sqamous Epithelial None Seen /HPF (None Seen); Urine Bacteria None Seen /HPF (<20); Urine Bilirubin NEGATIVE (Negative); Urine Blood 1+ (Negative); Urine Clarity Clear (Clear); Urine Color Colorless (Yellow); Urine Culture Reflex Order NOT NEEDED; Urine Glucose NEGATIVE (Negative); Urine Ketones 1+ (Negative); Urine Microscopic Reflex YN ORDER UMIC; Urine Nitrite NEGATIVE (Negative); Urine Protein NEGATIVE (Negative); Urine Urobilinogen Normal (Normal); Urine WBC <5 /HPF (<5); Urine pH 7.5 (5.0-7.0)
[2024-03-06] MEDS ORDERED: MORPHINE 2 MG/ML SYR IV PRN (19:13)
--- NOTE | 2024-03-06 19:17 | P.HP ---
Certification for Inpatient Patient admitted to: Inpatient With expected LOS: >2 Midnights Practitioner: I am a practitioner with admitting privileges, knowledge of patient current condition, hospital course, and medical plan of care. Services: Services provided to patient in accordance with Admission requirements found in Title 42 Section 412.3 of the Code of Federal Regulations Patient History Date of Service: 03/06/24 Reason for admission: ureteral stone History of Present Illness: Patient is a 84-year-old Citizen Of [place]-speaking female with a past medical history of osteoarthritis, osteoporosis. She presented to the ER accompanied by granddaughter and . She is complaining of an acutely worsening right lower quadrant pain that started early afternoon today. Associated symptoms included nausea and vomiting. Family reports that she has been in her usual state of health until few months ago when she had ankle surgery. Since her surgery, her oral intake has been poor. She has been slightly weak. Patient denies a history of hypertension, diabetes or coronary artery disease. Workup in the ER included CT abdomen and pelvis which revealed a 2 mm proximal ureteral calculus with moderate right hydronephrosis and proximal hydroureter.. Her troponin was also elevated at 92. She has no chest pain. Her EKG was negative for ischemic signs. It revealed sinus rhythm with premature atrial complex. Other lab abnormalities included mild hyponatremia and hypokalemia. She also had a lactic acidosis. She received 2.5 L of fluid in the ER including pain control and antiemetics. Allergies Penicillins Allergy (Verified 06/03/12 03:52) Anaphylaxis Home Medications: Ferrous Sulfate [Children's Iron] 5 mg PO DAILY 06/03/12 Methotrexate [Methotrexate*] 6 tab PO EVERY 7TH DAY 06/03/12 Folic Acid 1 mg PO DAILY #0 06/04/12 Omeprazole [Prilosec] 1 tab PO DAILY #0 06/04/12 Sulfamethoxazole/Trimethoprim [Bactrim Ds Tablet] 2 tab PO BID #0 tablet 06/04/12 - Social History Alcohol use: No CD- Drugs: No Physical Examination - Physical Exam General: Mild distress HEENT: Atraumatic, Normocephalic Neck: Supple Cardiovascular: No edema, Normal pulses, Regular rate/rhythm, Normal S1 S2 Gastrointestinal: Soft and benign, Non-distended Musculoskeletal: No clubbing, No swelling, No contractures, No erythema Neurological: Normal speech, Sensation intact, Cranial nerves 3-12 intact - Studies Laboratory Data (last 24 hrs) 03/06/24 03/06/24 03/06/24 15:05 15:05 15:05 WBC 10.30 Hgb 11.4 L Hct 34.3 L Plt Count 308 PT 12.1 INR 1.10 Sodium 135 L Potassium 3.3 L BUN 16 Creatinine 0.81 Glucose 127 H Magnesium 2.6 H Total Bilirubin 0.7 AST 21 ALT 22 Alkaline Phosphatase 105 Lipase 23 Assessment and Plan - Problems (Diagnosis) (1) Ureteral stone Current Visit: Yes Status: Acute (2) Hydronephrosis Current Visit: Yes Status: Acute (3) Hydroureter Current Visit: Yes Status: Acute (4) Hypokalemia Current Visit: Yes Status: Acute (5) Lactic acidosis Current Visit: Yes Status: Acute (6) Osteoarthritis Current Visit: Yes Status: Acute (7) Osteoporosis Current Visit: Yes Status: Acute - Plan Assessment Patient is a 84-year-old Citizen Of [place]-speaking female with a past medical history of osteoarthritis and osteoporosis who is being admitted after she presented with a right ureteral stone complicated by moderate hydronephrosis and proximal hydroureter. She had mild to electrolyte abnormalities including hypokalemia and hyponatremia. Otherwise, she is hemodynamically stable. Right ureteral stone with moderate hydronephrosis and proximal hydroureter Will admit inpatient Pain control with multimodal pain regimen which will include morphine and ketorolac Zofran added as well Normal saline infusion Urology consulted Elevated troponin Suspecting demand ischemia in the setting of ongoing nausea Patient's EKG was unremarkable Will trend troponin Obtain a formal echocardiogram If troponin continues to rise, will consult cardiology Hypokalemia Replace with 40 mEq potassium chloride Hyponatremia Mild. Most likely from poor oral intake Will treat with normal saline infusion Osteoarthritis Continue multimodal pain regimen above DVT prophylaxisLovenox GI prophylaxisPPI CODE STATUSDNR. This was in presence of granddaughter and spouse DispoHome when medically cleared - Advance Directives Does patient have a Living Will: No Does patient have a Durable POA for Healthcare: No
[2024-03-06] MEDS ORDERED: SODIUM CHLORIDE 0.9% 10ML INJ IV PRN (19:23)
[2024-03-06] MEDS ORDERED: PANTOPRAZOLE 40 MG INJ ONE (22:30)
[2024-03-06] MEDS ORDERED: POTASSIUM CL SA 10 MEQ TAB PO ONE (22:31)
[2024-03-06] MEDS: POTASSIUM CL SA 10 MEQ TAB PO ONE (22:52)
[2024-03-06] MEDS: PANTOPRAZOLE 40 MG INJ IVP SCH (22:53)
[2024-03-06] MEDS: NA CHLORIDE 0.9% 1,000 ML IV SCH (22:53)
[2024-03-07] MEDS ORDERED: KETOROLAC 30 MG/ML INJ IV PRN
[2024-03-07] MEDS: KETOROLAC 30 MG/ML INJ IV ONE ×2 (06:00)
[2024-03-07] MEDS ORDERED: NA CHLORIDE 0.9% 1,000 ML ONE (06:37)
[2024-03-07] MEDS ORDERED: PANTOPRAZOLE 40 MG INJ ONE (07:37)
[2024-03-07] MEDS ORDERED: ASPIRIN EC 81 MG TAB PO ONE (07:37)
[2024-03-07] MEDS ORDERED: ENOXAPARIN 40 MG/0.4 ML SQ ONE (07:38)
[2024-03-07] MEDS: ENOXAPARIN 40 MG/0.4 ML SQ SCH (08:15)
[2024-03-07] MEDS: ASPIRIN EC 81 MG TAB PO SCH (08:15)
--- NOTE | 2024-03-07 12:10 | P.CNS ---
Date of Consult: 03/07/24 Chief Complaint: ureteral stone History of Present Illness: Patient with no significant cardiac history, presented with lower abdominal pain, nausea and vomiting, denies having any chest pain, no CERDA, no palpitations, no syncope. Allergies Penicillins Allergy (Verified 06/03/12 03:52) Anaphylaxis Home Medications: Ferrous Sulfate [Children's Iron] 5 mg PO DAILY 06/03/12 Methotrexate [Methotrexate*] 6 tab PO EVERY 7TH DAY 06/03/12 Folic Acid 1 mg PO DAILY #0 06/04/12 Omeprazole [Prilosec] 1 tab PO DAILY #0 06/04/12 Sulfamethoxazole/Trimethoprim [Bactrim Ds Tablet] 2 tab PO BID #0 tablet 06/04/12 - Social History Smoking Status: Never smoker Alcohol use: No CD- Drugs: No Place of Residence: Home Review of Systems 10-point ROS is otherwise unremarkable Physical Examination Temp Pulse Resp BP Pulse Ox 97.0 F 72 15 125/53 L 96 03/07/24 00:00 03/07/24 08:00 03/07/24 08:00 03/07/24 08:00 03/07/24 08:00 General: Alert, In no apparent distress HEENT: Atraumatic, PERRLA, Mucous membr. moist/pink, EOMI, Sclerae nonicteric Neck: Supple, 2+ carotid pulse no bruit, No LAD, Without JVD or thyroid abnormality Respiratory: Clear to auscultation bilaterally, Normal air movement Cardiovascular: Regular rate/rhythm, Normal S1 S2 Gastrointestinal: Normal bowel sounds, No tenderness Musculoskeletal: No tenderness Integumentary: No rashes Neurological: Normal gait, Normal speech, Normal tone, Normal affect Lymphatics: No axilla or inguinal lymphadenopathy Laboratory Data (last 24 hrs) 03/06/24 03/06/24 03/06/24 15:05 15:05 15:05 WBC 10.30 Hgb 11.4 L Hct 34.3 L Plt Count 308 PT 12.1 INR 1.10 Sodium 135 L Potassium 3.3 L BUN 16 Creatinine 0.81 Glucose 127 H Magnesium 2.6 H Total Bilirubin 0.7 AST 21 ALT 22 Alkaline Phosphatase 105 Lipase 23 - Problems (1) Elevated troponin Current Visit: Yes Status: Acute Plan: Patient denies having chest pain, EKG shows no ischemic changes, troponin mildly elevated with no significant delta. most likely type 2 WI from dehydration, HTN and kidney stone. get echo, if normal, no further cardiac work up is needed. (2) HTN (hypertension) Current Visit: Yes Status: Acute Plan: Patient BP is back to normal, most likely secondary to pain. continue to monitor. (3) Hypokalemia Current Visit: Yes Status: Acute Plan: most likely secondary to vomiting, replace K for level more than 4. check Mg and replace for level more than 2.
--- NOTE | 2024-03-07 12:20 | P.PN ---
Subjective Date of Service: 03/07/24 Chief Complaint: ureteral stone Pt is resting comfortably in bed. She reports right sided abd pain. CT abd /pelvis shows 2mm ureteral calculus and right hydronephrosis. Troponin is slighly elevated but non-trending. Will f/u Echo. No other complaints. Review of Systems General: Unremarkable Eyes: Unremarkable ENT: Unremarkable Respiratory: Unremarkable Cardiovascular: Unremarkable Gastrointestinal: Abdominal Pain Genitourinary: Unremarkable Musculoskeletal: Unremarkable Integumentary: Unremarkable Neurological: Unremarkable Lymphatics: Unremarkable Physical Examination - Vital Signs Temperature: 97.0 F Blood Pressure: 125/53 Pulse: 72 Respirations: 15 Pulse Ox (%): 96 - Physical Exam General: Alert, In no apparent distress, Oriented x3 HEENT: Atraumatic, Normocephalic Neck: Supple, 2+ carotid pulse no bruit Respiratory: Clear to auscultation bilaterally, Normal air movement Cardiovascular: No edema, Normal pulses, Regular rate/rhythm, Normal S1 S2 Capillary refill: <2 Seconds Gastrointestinal: Normal bowel sounds, Soft and benign, Non-distended Musculoskeletal: No clubbing, No swelling Integumentary: No rashes, No breakdown, No significant lesion Neurological: Normal speech, Normal strength at 5/5 x4 extr, Normal tone, Sensation intact Lymphatics: No axilla or inguinal lymphadenopathy - Studies Laboratory Data (last 24 hrs) 03/06/24 03/06/24 03/06/24 15:05 15:05 15:05 WBC 10.30 Hgb 11.4 L Hct 34.3 L Plt Count 308 PT 12.1 INR 1.10 Sodium 135 L Potassium 3.3 L BUN 16 Creatinine 0.81 Glucose 127 H Magnesium 2.6 H Total Bilirubin 0.7 AST 21 ALT 22 Alkaline Phosphatase 105 Lipase 23 Assessment And Plan - Plan Right ureteral stone with moderate hydronephrosis and proximal hydroureter: Will continue IVF and prn pain med. Will strain urine. CT abd shows 2mm right renal stone. Consulted Urology Elevated troponin: Pt denies any chest pain. Likely due to demand ischemia. Troponin trend is 92 -> 99.5-> 98. Will f/u Echo. Cardiology is following. No further cardiac work up if Echo is normal. Hypokalemia: K is 3.3. Will replete and monitor. Hypontaremia: na is 135. Will continue IVF and monitor Na . Osteoarthritis: Continue prn pain med DVT ppx: lovenox GI ppx: protonix Code: DNR. Dispo: Pending hospital course
[2024-03-07] MEDS: NA CHLORIDE 0.9% 1,000 ML IV SCH (13:49)
--- NOTE | 2024-03-07 14:01 | ECHO ---
HEIGHT: 4 ft 5 in WEIGHT: 120 lb 0 oz DATE OF STUDY: 03/07/[address]: Prince Genoveva Merino MD 2-DIMENSIONAL: YES M.MODE: YES DOPPLER: YES COLOR FLOW: YES TDS: PORTABLE: YES DEFINITY: BUBBLE STUDY: DIAGNOSIS: ELEVATED TROPONIN CARDIAC HISTORY: CATHERIZATION: NO SURGERY: NO PROSTHETIC VALVE: NO PACEMAKER: NO MEASUREMENTS (cm) DIASTOLIC (NORMALS) SYSTOLIC (NORMALS) IVSd 1.0 (0.6-1.2) LA Diam 2.6 (1.9-4.0) LVEF 60-65% LVIDd 3.9 (3.5-5.7) LVIDs 2.6 (2.0-3.5) %FS 34% LVPWd 1.1 (0.6-1.2) Ao Diam 2.9 (2.0-3.7) 2 DIMENSIONAL ASSESSMENT: RIGHT ATRIUM: NORMAL LEFT ATRIUM: NORMAL RIGHT VENTRICLE: NORMAL LEFT VENTRICLE: NORMAL TRICUSPID VALVE: TRACE TRICUSPID REGURGITATION MITRAL VALVE: NORMAL PULMONIC VALVE: NORMAL AORTIC VALVE: TRACE AORTIC REGURGITATION PERICARDIAL EFFUSION: NONE AORTIC ROOT: NORMAL LEFT VENTRICULAR WALL MOTION: NORMAL DOPPLER/COLOR FLOW: GRADE I DIASTOLIC DYSFUNCTION COMMENTS: 1. NORMAL LEFT VENTRICULAR SYSTOLIC FUNCTION, EJECTION FRACTION 60-65%, NORMAL WALL MOTION 2. GRADE I DIASTOLIC DYSFUNCTION 3. NORMAL FILLING PRESSURE (RIGHT VENTRICULAR SYSTOLIC PRESSURE 25-30 mmHg) TECHNOLOGIST: LUCIANO AUGUSTIN
--- NOTE | 2024-03-07 15:02 | EKG ---
Test Date: 2024-03-06 Test Time: 14:40:14 Patient Care Specialist: EMELY MEASUREMENT RESULTS: Intervals: Rate: 74 CO: 130 QRSD: 76 QT: 358 QTc: 397 Hazel: P: 37 CO: 130 QRS: 42 T: 58 INTERPRETIVE STATEMENTS: Sinus rhythm with premature supraventricular complexes Otherwise normal ECG Compared to ECG 11/06/2019 14:23:36 Atrial premature complex(es) now present Sinus bradycardia no longer present Electronically Signed On 03-07-24 14:59:53 CDT by Levi Chase
[2024-03-07] MEDS: KETOROLAC 30 MG/ML INJ IV PRN (16:04)
[2024-03-07] MEDS: ONDANSETRON 4 MG/2 ML VIAL IV PRN (17:11)
[2024-03-07] MEDS: MORPHINE 4 MG/ML SYR IV PRN (18:16)
[2024-03-07] MEDS: ATORVASTATIN 40 MG TAB PO SCH (21:00)
[2024-03-08] MEDS: HYDRALAZINE HCL 20 MG/ML VIAL IV PRN (02:24)
[2024-03-08 03:39] LABS: Absolute Eosinophils 0.7 K/uL (0-0.5); Absolute Monocytes 0.9 K/uL (0.1-1.3); Absolute Neutrophil 5.9 K/uL (1.8-8.0); Hematocrit 32.2 % (36.0-45.0); Hemoglobin 10.8 g/dL (12.0-15.0); Lymphocytes % 11.9 % (15.3-44.8); MCH 29.4 pg (27.0-35.0); MCHC 33.5 g/dL (32.0-36.0); MCV 87.8 fL (80-100); MPV 7.6 fL (7.6-11.3); Monocytes % 10.4 % (3.3-12.3); Neutrophils % 69.7 % (41.7-73.7); Platelets 254 thou/uL (152-406); RBC Red Blood Cell Count 3.67 M/uL (3.86-4.86); Red Cell Distribution Width 17.9 % (12.1-15.2)
[2024-03-08 04:07] LABS: Albumin 2.8 g/dL (3.4-5.0); Albumin/Globulin Ratio 0.8 (1.1-1.8); Anion Gap 6.9 mEq/L (5.0-15.0); Bilirubin Total 0.6 mg/dL (0.2-1.0); Globulin 3.4 g/dL (2.3-3.5); Potassium 3.9 mEq/L (3.5-5.1); Protein, Total 6.2 g/dL (6.4-8.2)
--- NOTE | 2024-03-08 14:58 | P.PN ---
Subjective Date of Service: 03/08/24 Chief Complaint: ureteral stone Pt is resting comfortably in bed. She reports improvement of the RLQ abd pain. CT abd /pelvis shows 2mm ureteral calculus and right hydronephrosis. Troponin is slightly elevated but non-trending. She also has a right ankle wound around where she had ankle surgery 4 months ago. No other complaints. Review of Systems General: Unremarkable Eyes: Unremarkable ENT: Unremarkable Respiratory: Unremarkable Cardiovascular: Unremarkable Gastrointestinal: Unremarkable Genitourinary: Unremarkable Musculoskeletal: Unremarkable Integumentary: Lesions Neurological: Unremarkable Lymphatics: Unremarkable Physical Examination - Vital Signs Temperature: 97.6 F Blood Pressure: 154/72 Pulse: 95 Respirations: 15 Pulse Ox (%): 99 - Physical Exam General: Alert, In no apparent distress, Oriented x3 HEENT: Atraumatic, Normocephalic, PERRLA Neck: Supple, 2+ carotid pulse no bruit Respiratory: Clear to auscultation bilaterally, Normal air movement Cardiovascular: No edema, Normal pulses, Regular rate/rhythm, Normal S1 S2 Capillary refill: <2 Seconds Gastrointestinal: Normal bowel sounds, Soft and benign, Non-distended Musculoskeletal: No clubbing, No swelling Integumentary: No rashes, No breakdown, Skin lesion, Pressure ulcer Neurological: Normal speech, Normal strength at 5/5 x4 extr, Normal tone, Sensation intact Lymphatics: No axilla or inguinal lymphadenopathy Assessment And Plan - Plan Right ureteral stone with moderate hydronephrosis and proximal hydroureter: Will continue IVF and prn pain med. Will strain urine. CT abd shows 2mm right renal stone. Consulted Urology Elevated troponin: Pt denies any chest pain. Likely due to demand ischemia. Trop onin trend is 92 -> 99.5-> 98. Will f/u Echo. Cardiology is following. No further cardiac work up if Echo is normal. Right ankle wound: Will give ivvanc and continue wound care. It has serosanguinous drainage. Will obtain wound cx. Hypokalemia: K is 3.9. Will monitor. Hypontaremia: Na is 138. Will continue IVF and monitor Na . Osteoarthritis: Continue prn pain med DVT ppx: lovenox GI ppx: protonix Code: DNR. Dispo: Pending hospital course
[2024-03-08] MEDS: VANCOMYCIN 1 GM in NA CHLORIDE 0.9% 250 ML IVPB SCH (15:35)
[2024-03-08] MEDS: LORAZEPAM 0.5 MG TABLET PO PRN (17:17)
--- NOTE | 2024-03-08 19:06 | RAD REPORT ---
EXAM DESCRIPTION: Patricia Single View03/08/2024 6:32 pm CLINICAL HISTORY: sob COMPARISON: March 06, 2024 FINDINGS: The lungs appear clear of acute infiltrate. The heart is normal size IMPRESSION: No acute abnormalities displayed
[2024-03-08] MEDS: Mupirocin NASAL 2 APPL/1 GM TUBE NAS SCH (20:36)
[2024-03-09 00:06] VITALS: O2SAT 94
[2024-03-09 10:58] VITALS: BP 157/70; TEMP 98
--- NOTE | 2024-03-09 12:33 | P.DS ---
Admission Date: 03/06/24 Discharge Date: 03/09/24 Disposition: ROUTINE DISCHARGE Discharge Condition: GOOD Reason for Admission: ureteral stone Brief History of Present Illness: Patient is a 84-year-old Citizen Of [place]-speaking female with a past medical history of osteoarthritis, osteoporosis. She presented to the ER accompanied by granddaughter and . She is complaining of an acutely worsening right lower quadrant pain that started early afternoon today. Associated symptoms included nausea and vomiting. Family reports that she has been in her usual state of health until few months ago when she had ankle surgery. Since her surgery, her oral intake has been poor. She has been slightly weak. Patient denies a history of hypertension, diabetes or coronary artery disease. Workup in the ER included CT abdomen and pelvis which revealed a 2 mm proximal ureteral calculus with moderate right hydronephrosis and proximal hydroureter.. Her troponin was also elevated at 92. She has no chest pain. Her EKG was negative for ischemic signs. It revealed sinus rhythm with premature atrial complex. Other lab abnormalities included mild hyponatremia and hypokalemia. She also had a lactic acidosis. She received 2.5 L of fluid in the ER including pain control and antiemetics. Hospital Course: Patient is an 84yo female with past medical history of osteoarthritis and osteoporosis who presented with acutely worsening right lower quadrant pain that started on the day of admission. It progressively worsened to be come associated with nausea and vomiting. On admission, CT abdomen and pelvis revealed a 2 mm proximal ureteral calculus with moderate right hydronephrosis and proximal hydroureter. Lab studies showed elevated troponin (92), elevated lactate, mild hyponatremia and hypokalemia. Her EKG was negative for ischemic signs. It revealed sinus rhythm with premature atrial complex. She received 2.5 L of fluid in the ER including pain control and antiemetics. We admitted pt for right urete ral stone with moderate hydronephrosis and proximal hydroureter. We continued IVF, prn pain med and strained her urine. We consulted Urology. Pt had elevated and non-trending troponin ( 92 -> 99.5-> 98) due to demand ischemia. cardiology evaluated pt but did not recommend further work up. Echo showed EF 60 - 65% with grade I diastolic dysfunction. We continued wound care for the right ankle wound. Pt was advised to continue the bactrim at home and follow up with Orthopedic surgeon in clinic within 1 week. We repleted electrolytes anc continued prn pain med for osteoarthritis. Pt was in NAD prior to discharge. Vital Signs/Physical Exam: Temp Pulse Resp BP Pulse Ox 98.0 F 91 H 17 157/70 H 98 03/09/24 08:00 03/09/24 08:00 03/09/24 08:00 03/09/24 08:00 03/09/24 08:00 Laboratory Data at Discharge: WBC 8.50 thou/uL (4.3-10.9) 03/08/24 02:51 Hgb 10.8 g/dL (12.0-15.0) L 03/08/24 02:51 Hct 32.2 % (36.0-45.0) L 03/08/24 02:51 Plt Count 254 thou/uL (152-406) 03/08/24 02:51 PT 12.1 SECONDS (9.5-12.5) 03/06/24 15:05 INR 1.10 03/06/24 15:05 Sodium 138 mEq/L (136-145) 03/08/24 02:51 Potassium 3.9 mEq/L (3.5-5.1) 03/08/24 02:51 BUN 11 mg/dL (7-18) 03/08/24 02:51 Creatinine 0.84 mg/dL (0.55-1.02) 03/08/24 02:51 Glucose 98 mg/dL (74-106) 03/08/24 02:51 Magnesium 2.0 mg/dL (1.6-2.4) 03/08/24 02:51 Total Bilirubin 0.6 mg/dL (0.2-1.0) 03/08/24 02:51 AST 20 U/L (15-37) 03/08/24 02:51 ALT 19 U/L (13-56) 03/08/24 02:51 Alkaline Phosphatase 95 U/L (45-117) 03/08/24 02:51 Triglycerides 63 mg/dL (<150) 03/06/24 20:42 Cholesterol 180 mg/dL (<200) 03/06/24 20:42 HDL Cholesterol 66 mg/dL (40-60) H 03/06/24 20:42 Cholesterol/HDL Ratio 2.73 03/06/24 20:42 Lipase 23 U/L (13-75) 03/06/24 15:05 Home Medications: Ferrous Sulfate [Children's Iron] 5 mg PO DAILY 06/03/12 Methotrexate [Methotrexate*] 6 tab PO EVERY 7TH DAY 06/03/12 Folic Acid 1 mg PO DAILY #0 06/04/12 Omeprazole [Prilosec] 1 tab PO DAILY #0 06/04/12 Sulfamethoxazole/Trimethoprim [Bactrim Ds Tablet] 2 tab PO BID #0 tablet 06/04/12 Physician Discharge Instructions: Continue ad mir activity. Take home meds as prescribed. Drink water at home. Continue wound care and follow up with your PCP and orthopedic surgeon in clinic within 1 - 2 weeks. Diet: AHA Activity: Ad mir Followup: Rashaun Driver, [Primary Care Provider] -
== END 2024-03-09 13:48 | disposition home or self-care (01) | DRG 693 ==
LOC: ER 14:20 → ERHOLD 19:10 → 2ND 03-07 11:03
PROVIDERS: ADMIT Internal Medicine; ATTEND Hospitalist
DX: N13.2 Hydronephrosis with renal and ureteral calculous obstruction (principal); I21.A1 Myocardial infarction type 2; E87.1 Hypo-osmolality and hyponatremia; E87.20 Acidosis, unspecified; E87.6 Hypokalemia; M06.9 Rheumatoid arthritis, unspecified; I10 Essential (primary) hypertension; E86.0 Dehydration; M19.90 Unspecified osteoarthritis, unspecified site; M81.0 Age-related osteoporosis without current pathological fracture; R79.89 Other specified abnormal findings of blood chemistry; Z66 Do not resuscitate; Z88.0 Allergy status to penicillin; Z79.899 Other long term (current) drug therapy
CPT/HCPCS: 36415; 71045; 74177; 80048; 80053; 80061; 80076; 81001; 83036; 83605; 83690; 83735; 83880; 84484; 85025; 85610; 87040; 87070; 87077; 87186; 87205; 93005; 93306; 96361; 96365; 96366; 96375; 99285; C9113; J0360; J0744; J1650; J2270; J2405; J7030; J7040; J7050; Q9967

== ENCOUNTER → 2025-01-03 | Day surgery (SDC) | payer OTHER ==
--- NOTE | 2025-01-01 15:40 | RAD REPORT ---
EXAM: Chest Pa And Lat (2 Views) HISTORY: 84 years Female Pre-op pending heart catheterization COMPARISON: 03/08/2024 FINDINGS: LUNGS/PLEURA: The lungs are clear. No pleural effusions or pneumothorax. No pulmonary edema. CARDIAC/MEDIASTINUM: Stable size and configuration. UPPER ABDOMEN: No significant abnormality. BONES: No acute abnormality. LINES/TUBES/OTHER: N/A IMPRESSION: No evidence of acute cardiopulmonary disease. No significant change from prior.
[2025-01-01 15:44] LABS: Absolute Eosinophils 0.1 K/uL (0-0.5); Absolute Lymphocytes (CBC) 0.9 K/uL (0.7-4.9); Absolute Monocytes 0.4 K/uL (0.1-1.3); Absolute Neutrophil 4.9 K/uL (1.8-8.0); Basophils % 0.4 % (0-1.3); Eosinophils % 1.2 % (0-4.4); Hematocrit 31.8 % (36.0-45.0); Hemoglobin 10.9 g/dL (12.0-15.0); Lymphocytes % 13.9 % (15.3-44.8); MCH 29.7 pg (27.0-35.0); MCHC 34.3 g/dL (32.0-36.0); MCV 86.5 fL (80-100); Monocytes % 6.8 % (3.3-12.3); Neutrophils % 77.7 % (41.7-73.7); Platelets 205 thou/uL (152-406); RBC Red Blood Cell Count 3.68 M/uL (3.86-4.86)
[2025-01-01 15:47] LABS: PT Prothrombin Time 11.2 SECONDS (10-13.0); PTT, Activated Partial Thromb 27.5 SECONDS (27.2-37.4); Protime INR 0.98
[2025-01-01 15:51] LABS: Anion Gap 6.8 mEq/L (5.0-15.0); Potassium 4.8 mEq/L (3.5-5.1)
[~2025-01-03] MED LIST: ATROPINE SULF 1 MG/10 ML SYR IV ONE; FENTANYL CITR 100 MCG/2 ML ONE; HEPA 1000U/500MLS 2,000 UNIT/1,000 ML BAG IV ONE; HEPARIN 10,000 UNIT/10 ML VIAL IV ONE; HEPARIN 5000 UNIT/ML 1 ML VIAL ONE; LIDOCAINE 1% 20 ML MDV ONE; MIDAZOLAM HCL 2 MG/2 ML INJ ONE; NA CHLORIDE 0.9% 0 ML ONE; NA CHLORIDE 0.9% 500 ML ONE; VERAPAMIL HCL 10 MG/4 ML VIAL IV ONE
--- NOTE | 2025-01-03 08:52 | OP ---
Date of Procedure: 01/03/2025 Surgeon: AAKASH JOHNSON Procedures Performed: 1. Selective coronary angiogram. 2. Left heart catheterization. 3. Right heart catheterization. Indications: Chest pain and shortness of breath, unexplained, suggestive of possible unstable angina . Access: 1. Right radial artery 6-Bangladeshi, closed with TR band. 2. Right common femoral artery 5-Bangladeshi, closed with Mynx closure device. 3. Right IJ 7-Bangladeshi, closed with manual pressure. Complications: None. Bleeding: Less than 50 mL. Anesthesia: Total sedation time was 1 hour, used fentanyl, Versed. Description Of Procedure: After risks, benefits, and alternatives were explained, the patient agreed to procedure and signed informed consent. The patient was brought into cardiac catheterization [facility], prepped and draped in usual sterile fashion. Then, I accessed right IJ using micropuncture k it, ultrasound guidance, and placed a 7-Bangladeshi Coleman sheath and accessed right radial artery using pediatric micropuncture kit and placed a 6-Bangladeshi Slender sheath and then took a 7-Bangladeshi balloon ti pped [place] catheter through the IJ access into the right atrium, right ventricle, pulmonary artery and wedge, obtained waveform on pressure, and obtained cardiac output by thermodilutional method, then r emoved the [place]. The sheath was removed and manual pressure was used for closure with good hemostasi s. Then, I took 5-Bangladeshi [place] 4 catheter through the radial access into the aortic root over a J-wi re, engaged left main, took standard views, but due to tortuosity and spasm, could not engage the RCA , so the catheter was removed, sheath was removed. TR band was placed with good hemostasis and I acc essed right common femoral artery using micropuncture kit, ultrasound guidance, fluoroscopy, placed 5 -Bangladeshi Coleman sheath and took a 4-B[place]lades[place] 3DRC catheter into aortic root and across aortic valve, m easured the LVEDP. Pullback did not record any gradient, then engaged the RCA, took standard views a nd removed the catheter and the sheath. A 5-Bangladeshi Mynx closure device was used for closure with goo d hemostasis. Findings: Coronary angiogram: 1. Left main is normal. 2. LAD is normal, normal diagonal branches. 3. Left circumflex is normal. 4. RCA; it is dominant with proximal 30% stenosis. 5. LVEDP is elevated at 18 mmHg. Right heart catheterization numbers: RA pressure was 10, RV pressure is 34/6, mean of 10, PA pressur e was 31/12, mean of 18, pulmonary wedge pressure was 12, LVEDP was 18 mmHg, and cardiac output was 3 .9 L/minute average. Conclusions: 1. No significant coronary artery disease. 2. Mildly elevated filling pressures. Recommendation: Medical management. SR/MODL Voice ID: [id number] Report ID: [id number]
[2025-01-03 09:07] VITALS: O2SAT 100
[2025-01-03 11:36] VITALS: BP 156/53
[2025-01-03 11:42] VITALS: TEMP 97.8
--- NOTE | 2025-01-06 12:17 | EKG ---
Test Date: 2025-01-01 Test Time: 15:14:26 Automatic Vulcanizing Operator: SYD MEASUREMENT RESULTS: Intervals: Rate: 68 [place]: 136 QRSD: 74 QT: 386 QTc: 410 Fil[place]: P: 64 NJ: 136 QRS: -3 T: 55 INTERPRETIVE STATEMENTS: Sinus rhythm with premature atrial complexes Cannot rule out Anterior infarct, age undetermined Abnormal ECG Compared to ECG 03/06/2024 14:40:14 Myocardial infarct finding now present Electronically Signed On 01-06-25 12:06:39 CDT by Ritesh Turner
== END ==
LOC: PRE 06:44
PROVIDERS: ATTEND Internal Medicine
DX: I25.110 Atherosclerotic heart disease of native coronary artery with unstable angina pectoris (principal); I34.0 Nonrheumatic mitral (valve) insufficiency; I35.1 Nonrheumatic aortic (valve) insufficiency; I10 Essential (primary) hypertension; Z79.899 Other long term (current) drug therapy; Z88.0 Allergy status to penicillin; Z88.5 Allergy status to narcotic agent
CPT/HCPCS: 93005; 85025; 80048; 36415; 85610; 85730; 71046; 93460; 76937; C1893; Q9966; J1644; J2003; J2250; J3010; J7040; C1760; 93458; 99152; 99153; J0461